=== PATIENT | female | born 1985 | race African-American/Black ===

== ENCOUNTER 2016-03-08 21:15 | Inpatient (IN) | payer OTHER ==
[~2016-03-08] VITALS: Ht 170.2 cm; Wt 59.4 kg
[~2016-03-08 21:15] MED LIST: EPIP0.3I SQ; HYDR-3533 PO; HYDR50TA94 PO
[2016-03-08 21:30] VITALS: BP 108/78; PULSE 89; RESP 18; TEMP 97.7; O2SAT 99
[2016-03-08] MEDS ORDERED: ROBA750T PO (21:35)
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
[2016-03-08 22:22] LABS: AUTOMATED NEUTROPHIL # 2.6 TH/MM3 (1.8-7.7); BASOPHIL # 0.1 TH/MM3 (0-0.2); BASOPHIL % 1.3 % (0.0-2.0); EOSINOPHIL # 0.1 TH/MM3 (0-0.4); EOSINOPHIL % 1.2 % (0.0-4.0); HEMATOCRIT 34.8 % (35.0-46.0); HEMO FLAGS DIFF FINAL; LYMPH % 40.8 % (9.0-44.0); LYMPHOCYTE # 2.2 TH/MM3 (1.0-4.8); MEAN CELL VOLUME 82.8 FL (80.0-100.0); MEAN CORPUSCULAR HEMOGLOBIN 27.8 PG (27.0-34.0); MEAN CORPUSCULAR HGB CONC 33.6 % (32.0-36.0); NEUT % 49.7 % (16.0-70.0); PLATELET COUNT 425 TH/MM3 (150-450); RED CELL DISTRIBUTION WIDTH 13.6 % (11.6-17.2); WHITE BLOOD COUNT 5.3 TH/MM3 (4.0-11.0)
[2016-03-08 22:31] LABS: AMPHETAMINE, URINE NEG (NEG); BARBITURATES, URINE NEG (NEG); COCAINE, URINE NEG (NEG)
[2016-03-08 22:40] LABS: ANION GAP 10 MEQ/L (5-15); AST (GOT) 8 U/L (15-37); BICARBONATE 29.5 MEQ/L (21.0-32.0); BLOOD UREA NITROGEN 5 MG/DL (7-18); CHLORIDE 99 MEQ/L (98-107); GLOMERULAR FILTRATION RATE 99 ML/MIN (>89); POTASSIUM 3.2 MEQ/L (3.5-5.1); SODIUM (NA) 138 MEQ/L (136-145)
[2016-03-08 22:43] LABS: ALKALINE PHOSPHATASE 64 U/L (45-117); ALT (GPT) 17 U/L (10-53); TOTAL BILIRUBIN ADULT 0.2 MG/DL (0.2-1.0)
[2016-03-08 22:45] LABS: ACETAMINOPHEN LESS THAN 2.0 MCG/ML (10.0-30.0)
[2016-03-08] MEDS ORDERED: POTASSIUM CHLORIDE 20 MEQ CONTROLLED RELEASE TAB PO ONE (23:00)
[2016-03-09] MEDS ORDERED: ALPRAZolam 0.5 MG TAB PO ONE (01:15)
[2016-03-09] MEDS ORDERED: ALUMINUM/MAGNESIUM/SIMETH 30 ML CUP PO PRN (01:30)
[2016-03-09] MEDS ORDERED: ACETAMINOPHEN 325 MG TAB PO PRN (01:30)
[2016-03-09] MEDS ORDERED: MAGNESIUM HYDROXIDE SUSP 30 ML CUP PO PRN (01:30)
[2016-03-09] MEDS ORDERED: ACETAMINOPHEN/HYDROcodone 325 MG/5 MG TAB PO PRN (01:30)
[2016-03-09] MEDS ORDERED: hydrOXYzine HCL 50 MG TAB PO PRN (01:30)
[2016-03-09 02:45] VITALS: BP 106/73; PULSE 81; RESP 16; TEMP 97.8; O2SAT 100
[2016-03-09 05:34] VITALS: BP 133/80; PULSE 81; RESP 18; TEMP 98; O2SAT 97
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
[2016-03-09] MEDS ORDERED: REME15TA PO (09:46)
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
[2016-05-30] MEDS ORDERED: HYDR-3516 PO (14:18)
[2016-05-30] MEDS ORDERED: PRED20 PO (14:18)
[2016-05-30] MEDS ORDERED: CYCL1TAB29 PO (14:18)
[2016-07-31] MEDS ORDERED: LORA-474 PO (12:07)
[2016-07-31] MEDS ORDERED: SERT-132 PO (12:07)
[2016-07-31] MEDS ORDERED: ZOFR4TAB PO (12:12)
[2016-08-23] MEDS ORDERED: ZOFR4TAB PO (16:08)
[2016-08-23] MEDS ORDERED: LORA-474 PO (16:09)
== END 2016-03-09 10:20 | disposition home or self-care (01) | DRG 881 ==
LOC: NEPA 21:15 → NEDA 03-09 01:18 → H270 03-09 02:00
PROVIDERS: ADMIT Psychiatry & Neurology Psychiatry; ATTEND Psychiatry & Neurology Psychiatry
DX: F43.21 Adjustment disorder with depressed mood (principal); I10 Essential (primary) hypertension; F12.10 Cannabis abuse, uncomplicated; M79.7 Fibromyalgia; G43.909 Migraine, unspecified, not intractable, without status migrainosus; R20.0 Anesthesia of skin; M54.9 Dorsalgia, unspecified; K44.9 Diaphragmatic hernia without obstruction or gangrene; K21.9 Gastro-esophageal reflux disease without esophagitis; F17.210 Nicotine dependence, cigarettes, uncomplicated; Z59.0 Homelessness; Z87.442 Personal history of urinary calculi
CPT/HCPCS: 80053; 80307; 80320; 80329; 84703; 85025; 99285; G0480

== ENCOUNTER 2016-06-21 09:52 | Emergency (ER) | payer MEDICAID, OTHER ==
[~2016-06-21] VITALS: Ht 167.6 cm; Wt 60.0 kg
[~2016-06-21 09:52] MED LIST changes: +CYCL1TAB29 PO; +HYDR-3516 PO; +PRED20 PO; +REME15TA PO; +ROBA750T PO
[2016-06-21 09:55] VITALS: BP 168/98; PULSE 81; RESP 17; TEMP 97.9; O2SAT 98
--- NOTE | 2016-06-21 10:08 | PD ---
HPI . left hand pain Chief Complaint: Injury Time Seen by Provider: 10:07 Travel History International Travel<30 days: No Contact w/Intl Traveler<30days: No Traveled to known affect area: No History of Present Illness HPI 30-year-old female with no significant past medical history here with complaints of left hand pain. Patient says that her TV, which is a larger older TV was falling and about to hit her 6-year-old daughter, when she lunged forward and tried to catch it. The TV then fell on her left hand, but she was able to save her daughter. She is here now with left hand pain. The pain is located over the fifth metacarpal. There is some edema to the area. She does have a small abrasion. She rates the pain as 8/10 and it radiates up to the left wrist. She has pain with movement of her left wrist. She denies any head injury or loss of consciousness. She is left handed dominant. She denies any chance of as she had a hysterectomy. PFSH Past Medical History Hx Anticoagulant Therapy: No Anemia: Yes Anxiety: Yes Depression: Yes Cancer: No Cardiovascular Problems: Yes (HTN) Chemotherapy: No Cerebrovascular Accident: No Diabetes: No Diminished Hearing: No Endocrine: No Fibromyalgia: Yes Gastrointestinal Disorders: Yes (IBS) GERD: Yes Genitourinary: Yes (UTERINE FIBROIDS) Headaches: Yes Hepatitis: No Hiatal Hernia: Yes Herniated Disk: Yes Hypertension: Yes Immune Disorder: No Implanted Vascular Access Dvce: No Kidney Stones: Yes Musculoskeletal: Yes (chonic back pain) Neurologic: Yes (numbness down l leg to foot) Psychiatric: Yes Reproductive: No Respiratory: No Immunizations Current: Yes Migraines: Yes Thyroid Disease: No Ulcer: Yes ?: Not LMP: 2013 Menopausal: No : 2 Para: 2 Miscarriage: 0 : 0 Ovarian Cysts: Yes (BILATERAL 5CM ) Tubal Ligation: Yes Past Surgical History Abdominal Surgery: Yes AICD: No Cholecystectomy: Yes Gynecologic Surgery: Yes (lumpectomy left breast,) Hysterectomy: Yes Joint Replacement: No Oral Surgery: Yes (WISDOM TEETH) Pacemaker: No Thoracic Surgery: Yes (lumpectomy on left ) Other Surgery: Yes (hemmorrhoid removal, mesh removal with repair, cyst rectal removal,) Family History Family Hypercholesterolemia: Yes Social History Alcohol Use: No Tobacco Use: Yes (ocassionally) Substance Use: Yes (THC OPIATES BENZOS) Allergies-Medications (Allergen,Severity, Reaction): Coded Allergies: Clindamycin (Verified Allergy, Severe, Hives THROAT SWELLING, 06/21/16) Coconut (Verified Allergy, Severe, Anaphylaxis, 06/21/16) Pear (Verified Allergy, Severe, Anaphylaxis, 06/21/16) Toradol (Verified Allergy, Intermediate, STATES HIVES / GI SX, 06/21/16) Bactrim (Verified Adverse Reaction, Severe, throat swelling, 06/21/16) NYQUIL (Verified Adverse Reaction, Severe, irritability, 06/21/16) Cipro (Verified Adverse Reaction, Intermediate, RASH/hives, 06/21/16) Gabapentin (Verified Adverse Reaction, Intermediate, hives, 06/21/16) Keflex (Verified Adverse Reaction, Intermediate, hives, 06/21/16) Mobic (Verified Adverse Reaction, Intermediate, irritability/hives, ) Nonsteroidal Anti-Inflammatory Agts (Verified Adverse Reaction, Intermediate, 06/21/16) gastric ulcers and abd sx with mesh repair Pseudoephedrine (Verified Adverse Reaction, Intermediate, ITCHING/ RESTLESSNESS, 06/21/16) Tramadol (Verified Adverse Reaction, Intermediate, hives, 06/21/16) Reported Meds & Prescriptions Reported Meds & Active Scripts Active No Active Prescriptions or Reported Medications Review of Systems General / Constitutional: No: Fever Eyes: No: Visual changes HENT: No: Headaches Cardiovascular: No: Chest Pain or Discomfort Respiratory: No: Shortness of Breath Gastrointestinal: No: Abdominal Pain Genitourinary: No: Dysuria Musculoskeletal: Positive: Pain (left hand pain) Skin: No Rash Neurologic: No: Weakness Psychiatric: No: Depression Endocrine: No: Polydipsia Hematologic/Lymphatic: No: Easy Bruising Physical Exam Narrative GENERAL: AAO x 3, no acute distress, Well-nourished, well-developed patient. SKIN: Warm and dry. No visible rashes or bruising. 2 mm Abrasion near the fourth metacarpal away from the area of edema and pain HEAD: Normocephalic and atraumatic. EYES: No scleral icterus. No injection or drainage. ENT: No nasal drainage noted. Mucous membranes pink. Airway patent. NECK: Supple, trachea midline. No JVD. CARDIOVASCULAR: Regular rate and rhythm without murmurs, gallops, or rubs. RESPIRATORY: Breath sounds equal bilaterally. No accessory muscle use. No rhonchi or rales. GASTROINTESTINAL: Abdomen soft, non-tender, nondistended. EXTREMITIES: No cyanosis. Edema over the fifth metacarpal of the left hand. There is point tenderness in this area. There is pain with palpation to the distal ulna. There is also pain elicited with movement. right hand is normal. radial and ulnar pulses normal b/l. BACK: Nontender without obvious deformity. No CVA tenderness. PSYCH: AAO x 3, normal affect. Data Data Last Documented VS Vital Signs Date Time Temp Pulse Resp B/P Pulse Ox O2 Delivery O2 Flow Rate FiO2 06/21/16 09:55 97.9 81 17 168/98 98 Orders Oxycodone-Acetamin 5-325 Mg (Percocet (06/21/16 10:15) Hand, Complete ([id number]) (06/21/16 10:09) Wrist, Complete ([id number]) (06/21/16 10:09) ^ Dale Bandage (06/21/16 11:18) MDM Medical Decision Making Medical Screen Exam Complete: Yes Emergency Medical Condition: Yes Medical Record Reviewed: Yes Differential Diagnosis left hand pain, boxer's fracture, less likely dislocation Narrative Course 30-year-old female with no significant past medical history here with complaints of left hand pain. Patient says that her TV, which is a larger older TV was falling and about to hit her 6-year-old daughter, when she lunged forward and tried to catch it. The TV then fell on her left hand, but she was able to save her daughter. She is here now with left hand pain. The pain is located over the fifth metacarpal. There is some edema to the area. She does have a small abrasion. She rates the pain as 8/10 and it radiates up to the left wrist. She has pain with movement of her left wrist. She denies any head injury or loss of consciousness. SHe is left handed dominant. She denies any chance of as she had a hysterectomy. Patient seen and examined. She appears to have a possible left fifth metacarpal fracture. X-ray was ordered. Since pain is extending to the wrist and there is tenderness over the distal ulna, x-ray was also ordered for the wrist. Percocet given in the ED for pain control as patient has multiple drug allergies. Discussed RICE Prelim xray: 1054: no acute fracture identified. I am waiting no final read by radiologist. Last Impressions Wrist X-Ray 06/21/16 1009 Signed Impressions: Service Date/Time: Tuesday, June 21, 2016 10:39 - CONCLUSION: Unremarkable study. Jovanna Clayton MD Hand X-Ray 06/21/16 1009 Signed Impressions: Service Date/Time: Tuesday, June 21, 2016 10:35 - CONCLUSION: Unremarkable study. Jovanna Clayton MD Discussed normal findings with patient. Dale wrap provided for support. With trauma to the area she likely has contusion and some minor soft tissue injury. Recommend dale wrap and rest for the next 2-3 days as this is her dominant hand. If pain persists past 7-10 days f/u with PCP. She was comfortable prior to leaving. Patient verbalized understanding of instructions, questions were answered, and thanked me for their care. I advised them if their condition worsens, please return to the nearest emergency room for further care. Diagnosis Primary Impression: Left hand pain Additional Impression: Contusion of left hand Qualified Code: S60.222A - Contusion of left hand, initial encounter Departure Forms: Tests/Procedures, Work Release Enter return to work date: Jun 24, 2016 Special Instructions: limit heavy lifting or usage of left hand for next 2- 3 days. Additional Instructions: Rest the affected area as much as possible. Ice this area for 15-20 minutes at a time. You can do this every hour or as much as tolerated. Keep this area compressed (dale bandage) as tolerated. Elevate this area. Use over the counter pain medicines as needed for pain and inflammation. Please return to emergency department if your symptoms return or worsen. Follow up with your primary care provider. Take medications as prescribed. Scripts No Active Prescriptions or Reported Meds Disposition: 01 DISCHARGE HOME Condition: Stable Jennifer Dasilva Jun 21, 2016 10:08
[2016-06-21] MEDS ORDERED: oxyCODONE/ACETAMINOPHEN 5 MG/325 MG TAB PO ONE (10:15)
--- NOTE | 2016-06-21 10:55 | RADRPT ---
EXAM DATE/TIME: 06/21/2016 10:39 [facility] COMPARISON: No previous studies available for comparison. INDICATIONS : A television fell on her left hand/wrist MEDICAL HISTORY : None. SURGICAL HISTORY : None. ENCOUNTER: Initial ACUITY: 1 day PAIN SCORE: 9/10 LOCATION: Left wrist FINDINGS: No definite fractures, or dislocations are identified. No definite lytic or sclerotic lesion is seen . CONCLUSION: Unremarkable study. Jovanna Clayton MD on June 21, 2016 at 10:52 Board Certified Radiologist. This report was verified electronically.
--- NOTE | 2016-06-21 11:14 | RADRPT ---
EXAM DATE/TIME: 06/21/2016 10:35 [facility] COMPARISON: No previous studies available for comparison. INDICATIONS : A television fell on her left hand/wrist MEDICAL HISTORY : None. SURGICAL HISTORY : None. ENCOUNTER: Initial ACUITY: 1 day PAIN SCORE: 9/10 LOCATION: Left hand FINDINGS: No definite fractures, or dislocations are identified. No definite lytic or sclerotic lesion is seen . The joint spaces are well maintained. CONCLUSION: Unremarkable study. Jovanna Clayton MD on June 21, 2016 at 11:11 Board Certified Radiologist. This report was verified electronically.
[2016-07-31] MEDS ORDERED: LORA-474 PO (12:07)
[2016-07-31] MEDS ORDERED: SERT-132 PO (12:07)
[2016-07-31] MEDS ORDERED: ZOFR4TAB PO (12:12)
[2016-08-23] MEDS ORDERED: ZOFR4TAB PO (16:08)
[2016-08-23] MEDS ORDERED: LORA-474 PO (16:09)
== END 2016-06-21 11:30 | disposition home or self-care (01) ==
LOC: NEPK 09:52
DX: S60.222A Contusion of left hand, initial encounter (principal); W20.8XXA Other cause of strike by thrown, projected or falling object, initial encounter
CPT/HCPCS: 73110; 73130; 99283

== ENCOUNTER 2016-08-21 00:16 | Emergency (ER) | payer MEDICAID ==
[~2016-08-21] VITALS: Ht 170.2 cm; Wt 60.0 kg
[~2016-08-21 00:16] MED LIST changes: -CYCL1TAB29 PO; -EPIP0.3I SQ; -HYDR-3516 PO; -HYDR-3533 PO; -HYDR50TA94 PO; +LORA-474 PO; -PRED20 PO; -REME15TA PO; -ROBA750T PO; +SERT-132 PO; +ZOFR4TAB PO
[2016-08-21 00:18] VITALS: BP 137/80; PULSE 85; RESP 16; TEMP 98.5; O2SAT 99
[2016-08-21] MEDS ORDERED: SODIUM CHLOR 0.9% 1000 ML INJ 1,000 ML IV ONE (01:00)
[2016-08-21] MEDS ORDERED: ONDANSETRON HCL 4 MG/2 ML VIAL IV ONE (01:00)
--- NOTE | 2016-08-21 01:11 | PD ---
HPI Chief Complaint: Abdominal Pain Time Seen by Provider: 00:50 Travel History International Travel<30 days: No Contact w/Intl Traveler<30days: No Traveled to known affect area: No History of Present Illness HPI The patient is a 30 year old female who presents to the [facility] emergency department with a history of abdominal pain that began 2 days. It is constant in the midepigastric area and comes in waves on the sides of the abdomen. The patient reports that the pain is an 8/10 in severity. The patient reports having nausea without vomiting. The patient reports that she's had hard stools and had to push to get her stools out, therefore she thought she was constipated she did yesterday drink magnesium citrate and take the Dulcolax. She had 1 small pasty bowel movement today. She has had congestion for the last 2 weeks. She has a light light yellow nasal discharge with associated sinus pressure over her forehead and cheeks. The patient reports that she does have a history of a hiatal hernia and has been having worsening acid reflux. She took Zantac yesterday without any relief. The patient denies any recent known fevers, cough, chest congestion, neck pain, chest pain, shortness of breath, urinary symptoms, or neurologic symptoms. FORMERLY [facility], [facility] Past Medical History Narrative Medical The patient's past medical history is significant for hypertension, chronic back pain, anxiety and depression, chronic headaches, bowel obstruction, acid reflux, bowel obstruction Hx Anticoagulant Therapy: No Anemia: Yes Anxiety: Yes Depression: Yes Cancer: No Cardiovascular Problems: Yes (HTN) Chemotherapy: No Cerebrovascular Accident: No Diabetes: No Diminished Hearing: No Endocrine: No Fibromyalgia: Yes Gastrointestinal Disorders: Yes (IBS) GERD: Yes Genitourinary: Yes (UTERINE FIBROIDS) Headaches: Yes Hepatitis: No Hiatal Hernia: Yes Herniated Disk: Yes Hypertension: Yes Immune Disorder: No Implanted Vascular Access Dvce: No Kidney Stones: Yes Musculoskeletal: Yes (chonic back pain) Neurologic: Yes (numbness down l leg to foot) Psychiatric: Yes Reproductive: No Respiratory: No Immunizations Current: Yes Migraines: Yes Thyroid Disease: No Ulcer: Yes Tetanus Vaccination: < 5 Years Influenza Vaccination: Yes ?: Not Menopausal: No : 2 Para: 2 Miscarriage: 0 : 0 Ovarian Cysts: Yes (BILATERAL 5CM ) Tubal Ligation: Yes Past Surgical History Narrative Surgical The patient's past surgical history is significant for lumpectomy on left breast benign, hysterectomy, abdominal hernia repair with mesh x3, cholecystectomy, BTL, uterine ablation Abdominal Surgery: Yes AICD: No Cholecystectomy: Yes Gynecologic Surgery: Yes (lumpectomy left breast, UTERINE ABALATION) Hysterectomy: Yes Joint Replacement: No Oral Surgery: Yes (WISDOM TEETH) Pacemaker: No Thoracic Surgery: Yes (lumpectomy on left ) Other Surgery: Yes (hemmorrhoid removal, mesh removal with repair, cyst rectal removal,) Family History Family Hypercholesterolemia: Yes Social History Alcohol Use: Yes (OCCASSIONALLY) Tobacco Use: Yes (ocassionally) Substance Use: No (PT DENIES, HX) Allergies-Medications (Allergen,Severity, Reaction): Coded Allergies: Clindamycin (Verified Allergy, Severe, Hives THROAT SWELLING, 08/21/16) Coconut (Verified Allergy, Severe, Anaphylaxis, 08/21/16) Pear (Verified Allergy, Severe, Anaphylaxis, 08/21/16) Toradol (Verified Allergy, Intermediate, STATES HIVES / GI SX, 08/21/16) Bactrim (Verified Adverse Reaction, Severe, throat swelling, 08/21/16) NYQUIL (Verified Adverse Reaction, Severe, irritability, 08/21/16) Cipro (Verified Adverse Reaction, Intermediate, RASH/hives, 08/21/16) Gabapentin (Verified Adverse Reaction, Intermediate, hives, 08/21/16) Keflex (Verified Adverse Reaction, Intermediate, hives, 08/21/16) Mobic (Verified Adverse Reaction, Intermediate, irritability/hives, ) Nonsteroidal Anti-Inflammatory Agts (Verified Adverse Reaction, Intermediate, 08/21/16) gastric ulcers and abd sx with mesh repair Pseudoephedrine (Verified Adverse Reaction, Intermediate, ITCHING/ RESTLESSNESS, 08/21/16) Tramadol (Verified Adverse Reaction, Intermediate, hives, 08/21/16) Reported Meds & Prescriptions Reported Meds & Active Scripts Active Zofran Odt (Ondansetron Odt) 4 Mg Tab 4 Mg SL Q6HR PRN Augmentin (Amoxicillin-Clavulanate) 875-125 Mg Tab 1 Tab PO BID Zofran (Ondansetron HCl) 4 Mg Tab 4 Mg PO Q8HR PRN Ativan (Lorazepam) 1 Mg Tab 1 Mg PO Q8H PRN Sertraline (Sertraline HCl) 50 Mg Tab 50 Mg PO DAILY Review of Systems Except as stated in HPI: all other systems reviewed are Neg General / Constitutional: No: Fever Eyes: No: Visual changes HENT: Positive: Headaches, Rhinorrhea (yellow color), Congestion, No: Neck Stiffness, Neck Pain Cardiovascular: No: Chest Pain or Discomfort Respiratory: No: Shortness of Breath Gastrointestinal: Positive: Nausea, Abdominal Pain, Indigestion, No: Vomiting , Diarrhea Genitourinary: No: Dysuria Musculoskeletal: No: Pain Skin: No Rash Neurologic: No: Weakness, Focal Abnormalities, Change in Mentation, Slurred Speech, Sensory Disturbance Psychiatric: No: Depression Endocrine: No: Polydipsia Hematologic/Lymphatic: No: Easy Bruising Physical Exam Narrative General: The patient is a well-developed well-nourished female in no acute distress. Head and Neck exam: Head is normocephalic atraumatic. Eyes: EOMI, pupils are equal round and reactive to light. Nose: Midline septum with pink mucous membranes Mouth: Dentition unremarkable. Moist mucus membranes. Posterior oropharynx is not erythematous. No tonsillar hypertrophy. Uvula midline. Airway patent. Neck: No palpable lymphadenopathy. No nuchal rigidity. No thyromegaly. Cardiovascular: Regular rate and rhythm without murmurs, gallops, or rubs. Lungs: Clear to auscultation bilaterally. No wheezes, rhonchi, or rales. Abdomen: Soft, with tenderness on palpation in the midepigastric area and just above the umbilicus. No tenderness on palpation in the other quadrants of the abdomen, specifically along the left and right lower quadrant. No guarding, rebound, or rigidity. Negative Kountze sign. Normal bowel sounds are audible. Extremities: No clubbing, cyanosis, or edema. 2+ pulses in all 4 extremities. No calf tenderness on palpation. Back: No spinous process tenderness to palpation. No costovertebral angle tenderness to palpation. Neurologic Exam: Grossly nonfocal. Skin Exam: No rash noted. Intact skin that is warm and dry. Data Data Last Documented VS Vital Signs Date Time Temp Pulse Resp B/P Pulse Ox O2 Delivery O2 Flow Rate FiO2 08/21/16 02:05 77 18 144/60 100 Room Air 08/21/16 00:18 98.5 Orders Complete Blood Count With Diff (08/21/16 00:53) Comprehensive Metabolic Panel (08/21/16 00:53) C-Reactive Protein (Crp) (08/21/16 00:53) Lipase (08/21/16 00:53) Urinalysis - C+S If Indicated (08/21/16 00:53) Magnesium (Mg) (08/21/16 00:53) Iv Access Insert/Monitor (08/21/16 00:53) Ecg Monitoring (08/21/16 00:53) Oximetry (08/21/16 00:53) Ed Urine Pregnancytest Poc (08/21/16 00:53) Lactic Acid (08/21/16 00:53) Sodium Chlor 0.9% 1000 Ml Inj (Ns 1000 M (08/21/16 01:00) Ondansetron Inj (Zofran Inj) (08/21/16 01:00) Ct Abd/Pel W Iv Contrast(Rout) (08/21/16 01:47) Morphine Inj (Morphine Inj) (08/21/16 02:00) Pantoprazole Inj (Protonix Inj) (08/21/16 02:00) Iohexol 350 Inj (Omnipaque 350 Inj) (08/21/16 02:45) Amoxicil-Clavulanate (Augmentin) (08/21/16 03:15) Labs Laboratory Tests Test 08/21/16 08/21/16 01:17 01:21 Urine Color YELLOW Urine Turbidity HAZY Urine pH 7.0 Urine Specific [place] 1.018 Urine Protein NEG mg/dL Urine Glucose (UA) NEG mg/dL Urine Ketones NEG mg/dL Urine Occult Blood NEG Urine Nitrite NEG Urine Bilirubin NEG Urine Urobilinogen LESS THAN 2.0 MG/DL Urine Leukocyte Esterase SMALL Urine RBC 2 /hpf Urine WBC 4 /hpf Urine Squamous Epithelial 4 /hpf Cells Urine Bacteria RARE /hpf Urine Mucus FEW /lpf Microscopic Urinalysis Comment CULT NOT INDICATED White Blood Count 5.6 TH/MM3 Red Blood Count 3.96 MIL/MM3 Hemoglobin 11.3 GM/DL Hematocrit 33.8 % Mean Corpuscular Volume 85.2 FL Mean Corpuscular Hemoglobin 28.4 PG Mean Corpuscular Hemoglobin 33.3 % Concent Red Cell Distribution Width 14.6 % Platelet Count 241 TH/MM3 Mean Platelet Volume 7.8 FL Neutrophils (%) (Auto) 52.6 % Lymphocytes (%) (Auto) 37.2 % Monocytes (%) (Auto) 7.6 % Eosinophils (%) (Auto) 2.2 % Basophils (%) (Auto) 0.4 % Neutrophils # (Auto) 2.9 TH/MM3 Lymphocytes # (Auto) 2.1 TH/MM3 Monocytes # (Auto) 0.4 TH/MM3 Eosinophils # (Auto) 0.1 TH/MM3 Basophils # (Auto) 0.0 TH/MM3 CBC Comment DIFF FINAL Differential Comment Sodium Level 142 MEQ/L Potassium Level 3.5 MEQ/L Chloride Level 106 MEQ/L Carbon Dioxide Level 29.2 MEQ/L Anion Gap 7 MEQ/L Blood Urea Nitrogen 8 MG/DL Creatinine 0.65 MG/DL Estimat Glomerular Filtration 131 ML/MIN Rate Random Glucose 87 MG/DL Lactic Acid Level 1.2 mmol/L Calcium Level 8.7 MG/DL Magnesium Level 1.9 MG/DL Total Bilirubin LESS THAN 0.1 MG/DL Aspartate Amino Transf 20 U/L (AST/SGOT) Alanine Aminotransferase 23 U/L (ALT/SGPT) Alkaline Phosphatase 49 U/L C-Reactive Protein LESS THAN 0.29 MG/DL Total Protein 6.8 GM/DL Albumin 3.5 GM/DL Lipase 235 U/L [facility] Medical Decision Making Medical Screen Exam Complete: Yes Emergency Medical Condition: Yes Medical Record Reviewed: Yes Interpretation(s) Last Impressions Abdomen/Pelvis CT 08/21/16 0147 Signed Impressions: Service Date/Time: Sunday, August 21, 2016 02:39 - CONCLUSION: Mild colitis suspected in the proper clinical setting, mainly the transverse colon. The rest of the CT of the abdomen and pelvis is within normal limits. Previous cholecystectomy. Floyd Ramirez MD Differential Diagnosis Bowel obstruction, versus constipation, versus colitis, versus diverticulitis, versus peptic ulcer disease, versus acid reflux, versus pancreatitis Narrative Course During the course of the patients emergency department visit, the patients history, examination, and differential diagnosis were reviewed with the patient. The patient had IV access obtained and blood work sent for analysis. The patient was placed on a color television console monitor with oximetry and blood pressure monitoring. The patient was initially provided normal saline 1 L IV fluid bolus, morphine 4 mg IV, Zofran 4 mg IV. The patients laboratory studies were reviewed and remarkable for a white count of 5.6, hemoglobin 11.3, platelets 241 with a normal differential. CMP is unremarkable, C-reactive protein less than 0.29, lipase 235, lactic acid 1.2, urinalysis shows small leukocyte esterase rare bacteria otherwise unremarkable, culture not indicated. Radiology studies were reviewed and remarkable for a CT scan of the abdomen and pelvis that shows a mild colitis of the transverse colon, no other acute abnormality. Given the patient's allergy history, I was limited as to the choice of antibiotic coverage for colitis, Augmentin was administered 875 mg by mouth 1 in the emergency department. She will be continued on this for the next 10 days. She was instructed regarding the importance of close follow-up with her primary care physician and referred to a machine inker that she continues to have problems. The patient is resting comfortably and feels better, is alert and in no distress. The patients results and examination findings were discussed with the patient. The repeat examination is unremarkable and benign. The history, exam, diagnostic testing, and current condition do not suggest any significant pathology to warrant further testing, continued ED treatment, admission, or surgical evaluation at this point. The vital signs have been stable. The patient does not have uncontrollable pain, intractable vomiting, or other significant symptoms. The patient's condition is stable and appropriate for discharge. The patient will pursue further outpatient evaluation with a primary care physician or other designated or consulting physician as indicated in the discharge instructions. The patient expressed understanding and was agreeable with this plan. Diagnosis Primary Impression: Colitis Additional Impression: Acute bacterial sinusitis Referrals: Primary Care Physician 2 days Patient Instructions: General Instructions, Infectious Colitis (ED), Sinusitis (ED) Med/Other Pt SpecificInfo: Prescription(s) given Scripts Ondansetron Odt (Zofran Odt)4 Mg Tab4 Mg SL Q6HR PRN (Nausea/Vomiting) #7 TAB Ref 0 Prov:Sindhu Sanabria MD 08/21/16 Amoxicillin-Clavulanate (Augmentin)875-125 Mg Tab1 Tab PO BID #19 TAB Ref 0 Prov:Sindhu Sanabria MD 08/21/16 Disposition: 01 DISCHARGE HOME Condition: Stable Sindhu Sanabria MD Aug 21, 2016 01:11
[2016-08-21 01:29] VITALS: RESP 18; O2SAT 100
[2016-08-21 01:34] LABS: AUTOMATED NEUTROPHIL # 2.9 TH/MM3 (1.8-7.7); BASOPHIL % 0.4 % (0.0-2.0); EOSINOPHIL # 0.1 TH/MM3 (0-0.4); EOSINOPHIL % 2.2 % (0.0-4.0); HEMATOCRIT 33.8 % (35.0-46.0); HEMO FLAGS DIFF FINAL; LYMPH % 37.2 % (9.0-44.0); LYMPHOCYTE # 2.1 TH/MM3 (1.0-4.8); MEAN CELL VOLUME 85.2 FL (80.0-100.0); MEAN CORPUSCULAR HEMOGLOBIN 28.4 PG (27.0-34.0); MEAN CORPUSCULAR HGB CONC 33.3 % (32.0-36.0); MONO % 7.6 % (0.0-8.0); NEUT % 52.6 % (16.0-70.0); PLATELET COUNT 241 TH/MM3 (150-450); RED BLOOD COUNT 3.96 MIL/MM3 (4.00-5.30); RED CELL DISTRIBUTION WIDTH 14.6 % (11.6-17.2); WHITE BLOOD COUNT 5.6 TH/MM3 (4.0-11.0)
[2016-08-21 01:59] LABS: BACTERIA, URINE RARE /hpf; BLOOD, URINE NEG (NEG); COMMENT (UR) CULT NOT INDICATED; CULTURE IF INDICATED CULT NOT INDICATED; GLUCOSE,URINE NEG (NEG); KETONE, URINE NEG (NEG); MUCUS URINE FEW /lpf (OCC); NITRITE,URINE NEG (NEG); SQUAMOUS EPITHELIAL CELL URINE 4 /hpf (0-5); URINE COLOR YELLOW (YELLW/STRAW)
[2016-08-21] MEDS ORDERED: MORPHINE SULFATE 4 MG/ML INJ IV PUSH ONE (02:00)
[2016-08-21] MEDS ORDERED: PANTOPRAZOLE SODIUM 40 MG VIAL IV PUSH ONE (02:00)
[2016-08-21 02:02] LABS: ALT (GPT) 23 U/L (10-53); ANION GAP 7 MEQ/L (5-15); AST (GOT) 20 U/L (15-37); BICARBONATE 29.2 MEQ/L (21.0-32.0); BLOOD UREA NITROGEN 8 MG/DL (7-18); CHLORIDE 106 MEQ/L (98-107); GLOMERULAR FILTRATION RATE 131 ML/MIN (>89); MAGNESIUM 1.9 MG/DL (1.5-2.5); POTASSIUM 3.5 MEQ/L (3.5-5.1); SODIUM (NA) 142 MEQ/L (136-145)
[2016-08-21 02:04] LABS: ALKALINE PHOSPHATASE 49 U/L (45-117); TOTAL BILIRUBIN ADULT LESS THAN 0.1 MG/DL (0.2-1.0)
[2016-08-21 02:05] VITALS: BP 144/60; PULSE 77; RESP 18; O2SAT 100
[2016-08-21] MEDS ORDERED: IOHEXOL 350 MG/ML 10 ML VIAL (for RAD DIAG) IV ONE (02:45)
--- NOTE | 2016-08-21 02:57 | RADRPT ---
EXAM DATE/TIME: 08/21/2016 02:39 [place] COMPARISON: CT ABDOMEN & PELVIS W CONTRAST, June 15, 2014, 18:40. INDICATIONS : Abdomen pain with nausea. IV CONTRAST: 94 cc Omnipaque 350 (iohexol) IV ORAL CONTRAST: No oral contrast ingested. RADIATION DOSE: 6.46 CTDIvol (mGy) MEDICAL HISTORY : Hypertension. Renal calculi. Gastroesophageal reflux disease.Renal stones SURGICAL HISTORY : Cholecystectomy. Hysterectomy.Umbilical hernia repair. ENCOUNTER: Initial ACUITY: 1 day PAIN SCALE: 7/10 LOCATION: Bilateral abdomen TECHNIQUE: Volumetric scanning of the abdomen and pelvis was performed. Using automated exposure control and ad justment of the mA and/or kV according to patient size, radiation dose was kept as low as reasonably achievable to obtain optimal diagnostic quality images. FINDINGS: LOWER LUNGS: The visualized lower lungs are clear. LIVER: Homogeneous density without lesion. There is no dilation of the biliary tree. Previous cholecystecto my. SPLEEN: Normal size without lesion. PANCREAS: Within normal limits. KIDNEYS: Normal in size and shape. There is no mass, stone or hydronephrosis. ADRENAL GLANDS: Within normal limits. VASCULAR: There is no aortic aneurysm. BOWEL/MESENTERY: There is apparent mild colonic wall thickening, especially the transverse colon. The CT appearance of the small bowel within normal limits. Appendix within normal limits. ABDOMINAL WALL: Within normal limits. RETROPERITONEUM: There is no lymphadenopathy. BLADDER: No wall thickening or mass. REPRODUCTIVE: Within normal limits. INGUINAL: There is no lymphadenopathy or hernia. MUSCULOSKELETAL: Within normal limits for patient age. CONCLUSION: Mild colitis suspected in the proper clinical setting, mainly the transverse colon. The rest of the C T of the abdomen and pelvis is within normal limits. Previous cholecystectomy. Floyd Ramirez MD on August 21, 2016 at 2:51 Board Certified Radiologist. This report was verified electronically.
[2016-08-21] MEDS ORDERED: ZOFR4TAB3 SL (03:13)
[2016-08-21] MEDS ORDERED: AUGM875T3 PO (03:13)
[2016-08-21] MEDS ORDERED: AMOXICILLIN/CLAVULANATE K 875 MG TAB PO ONE (03:15)
[2016-08-23] MEDS ORDERED: ZOFR4TAB PO (16:08)
[2016-08-23] MEDS ORDERED: LORA-474 PO (16:09)
[2016-09-05] MEDS ORDERED: AMOX500C PO (14:46)
[2016-09-05] MEDS ORDERED: NORC5TAB PO (14:52)
== END 2016-08-21 04:11 | disposition home or self-care (01) ==
LOC: NEPE 00:16
DX: K52.9 Noninfective gastroenteritis and colitis, unspecified (principal); J01.90 Acute sinusitis, unspecified; B96.89 Other specified bacterial agents as the cause of diseases classified elsewhere; D64.9 Anemia, unspecified; I10 Essential (primary) hypertension; K58.9 Irritable bowel syndrome, unspecified; K21.9 Gastro-esophageal reflux disease without esophagitis; F41.9 Anxiety disorder, unspecified; Z79.899 Other long term (current) drug therapy
CPT/HCPCS: 74177; 80053; 81001; 83605; 83690; 83735; 84703; 85025; 86140; 96361; 96374; 96375; 99285; C9113; J2270; J2405; J7030; Q9967

== ENCOUNTER 2016-08-25 12:17 | Emergency (ER) | payer MEDICAID ==
[~2016-08-25 12:17] MED LIST changes: +AUGM875T3 PO; +ZOFR4TAB3 SL
[2016-08-25 12:20] VITALS: BP 140/84; PULSE 84; RESP 15; TEMP 98.2; O2SAT 99
[2016-08-25] MEDS ORDERED: LIDOCAINE HCL 1% 50 ML VIAL INFIL ONE (13:00)
--- NOTE | 2016-08-25 13:00 | PD ---
HPI . Right forearm laceration Chief Complaint: Laceration/Skin Injury Time Seen by Provider: 12:59 Travel History International Travel<30 days: No Contact w/Intl Traveler<30days: No Traveled to known affect area: No History of Present Illness HPI 30-year-old female with no significant past medical history with a significant amount of drug allergies here with complaints of right forearm laceration that she sustained less than hour ago while trying to clean a fish. Patient tells me that she was fishing and caught a fish and decided to clean it on top of her right forearm because there was no counter space and accidentally delayed through the fish into her arm. She sustained a 6 cm superficial laceration. She is uncertain of her last tetanus. She complains of pain in the laceration site and has no other issues. PFSH Past Medical History Hx Anticoagulant Therapy: No Anemia: Yes Anxiety: Yes Depression: Yes Cancer: No Cardiovascular Problems: Yes (HTN) Chemotherapy: No Cerebrovascular Accident: No Diabetes: No Diminished Hearing: No Endocrine: No Fibromyalgia: Yes Gastrointestinal Disorders: Yes (IBS) GERD: Yes Genitourinary: Yes (UTERINE FIBROIDS) Headaches: Yes Hepatitis: No Hiatal Hernia: Yes Herniated Disk: Yes Hypertension: Yes Immune Disorder: No Implanted Vascular Access Dvce: No Kidney Stones: Yes Musculoskeletal: Yes (chonic back pain) Neurologic: Yes (numbness down l leg to foot) Psychiatric: Yes Reproductive: No Respiratory: No Immunizations Current: Yes Migraines: Yes Thyroid Disease: No Ulcer: Yes Menopausal: No : 2 Para: 2 Miscarriage: 0 : 0 Ovarian Cysts: Yes (BILATERAL 5CM ) Tubal Ligation: Yes Past Surgical History Abdominal Surgery: Yes AICD: No Cholecystectomy: Yes Gynecologic Surgery: Yes (lumpectomy left breast, UTERINE ABALATION) Hysterectomy: Yes Joint Replacement: No Oral Surgery: Yes (WISDOM TEETH) Pacemaker: No Thoracic Surgery: Yes (lumpectomy on left ) Other Surgery: Yes (hemmorrhoid removal, mesh removal with repair, cyst rectal removal,) Family History Family Hypercholesterolemia: Yes Social History Alcohol Use: Yes (OCCASSIONALLY) Tobacco Use: Yes (ocassionally) Substance Use: No (PT DENIES, HX) Allergies-Medications (Allergen,Severity, Reaction): Coded Allergies: Clindamycin (Verified Allergy, Severe, Hives THROAT SWELLING, 08/25/16) Coconut (Verified Allergy, Severe, Anaphylaxis, 08/25/16) Pear (Verified Allergy, Severe, Anaphylaxis, 08/25/16) Toradol (Verified Allergy, Intermediate, STATES HIVES / GI SX, 08/25/16) Bactrim (Verified Adverse Reaction, Severe, throat swelling, 08/25/16) NYQUIL (Verified Adverse Reaction, Severe, irritability, 08/25/16) Cipro (Verified Adverse Reaction, Intermediate, RASH/hives, 08/25/16) Gabapentin (Verified Adverse Reaction, Intermediate, hives, 08/25/16) Keflex (Verified Adverse Reaction, Intermediate, hives, 08/25/16) Mobic (Verified Adverse Reaction, Intermediate, irritability/hives, ) Nonsteroidal Anti-Inflammatory Agts (Verified Adverse Reaction, Intermediate, 08/25/16) gastric ulcers and abd sx with mesh repair Pseudoephedrine (Verified Adverse Reaction, Intermediate, ITCHING/ RESTLESSNESS, 08/25/16) Tramadol (Verified Adverse Reaction, Intermediate, hives, 08/25/16) Reported Meds & Prescriptions Reported Meds & Active Scripts Active Doxycycline Hyclate 100 Mg Cap 100 Mg PO BID Ativan (Lorazepam) 1 Mg Tab 1 Mg PO Q8H PRN Zofran (Ondansetron HCl) 4 Mg Tab 4 Mg PO Q8HR PRN Zofran Odt (Ondansetron Odt) 4 Mg Tab 4 Mg SL Q6HR PRN Augmentin (Amoxicillin-Clavulanate) 875-125 Mg Tab 1 Tab PO BID Sertraline (Sertraline HCl) 50 Mg Tab 50 Mg PO DAILY Review of Systems General / Constitutional: No: Fever Eyes: No: Visual changes HENT: No: Headaches Cardiovascular: No: Chest Pain or Discomfort Respiratory: No: Shortness of Breath Gastrointestinal: No: Abdominal Pain Genitourinary: No: Dysuria Musculoskeletal: No: Pain Skin: Positive Other (laceration ), No Rash Neurologic: No: Weakness Psychiatric: No: Depression Endocrine: No: Polydipsia Hematologic/Lymphatic: No: Easy Bruising Physical Exam Narrative GENERAL: AAO x 3, no acute distress, Well-nourished, well-developed patient. SKIN: Warm and dry. No visible rashes or bruising. 6 cm superficial laceration to the right ventral aspect of the forearm. The laceration is very superficial and there is no visible deep tissue, vessel or nerve injury. HEAD: Normocephalic and atraumatic. EYES: No scleral icterus. No injection or drainage. EOM intact, PERRLA ENT: No nasal drainage noted. Mucous membranes pink. Airway patent. NECK: Supple, trachea midline. No JVD. CARDIOVASCULAR: Regular rate and rhythm without murmurs, gallops, or rubs. RESPIRATORY: Breath sounds equal bilaterally. No accessory muscle use. No rhonchi or rales. GASTROINTESTINAL: Visual inspection normal EXTREMITIES: No cyanosis or edema. All digits of the right and left hand move freely without any abnormalities. BACK: Nontender without obvious deformity. No CVA tenderness. 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 Data Data Last Documented VS Vital Signs Date Time Temp Pulse Resp B/P Pulse Ox O2 Delivery O2 Flow Rate FiO2 08/25/16 12:20 98.2 84 15 140/84 99 Orders Lidocaine 1% Inj (50 Ml) (Xylocaine 1% I (08/25/16 13:00) Tetanus/Diphtheria Tox Adult (Tetanus/Di (08/25/16 13:15) MDM Medical Decision Making Medical Screen Exam Complete: Yes Emergency Medical Condition: Yes Medical Record Reviewed: Yes Differential Diagnosis Skin abrasion, forearm laceration, less likely arterial bleed Narrative Course 30-year-old female here with a very superficial 6 cm laceration to the right forearm. Patient gave verbal consent to repair. Tetanus ordered. 12 sutures were placed to close this laceration. Patient tolerated without incident. I advised her to have the sutures removed in 7-10 days. We discussed the signs of infection and she was notified when to return to the emergency department. Patient has a long list of allergies and we have decided on using doxycycline for coverage of possible infection. Patient verbalized understanding of instructions, questions were answered, and thanked me for their care. I advised them if their condition worsens, please return to the nearest emergency room for further care. Procedures Procedure Narrative LACERATION LOCATION: Right forearm ventral LENGTH: 6 cm NUMBER OF STITCHES/HUSSEIN: 12 REPAIR: The area of the laceration was prepped with Betadine and sterilely draped. The laceration was infiltrated with 1% lidocaine. The wound was copiously irrigated and explored without evidence of foreign body, tendon injury or neurovascular injury. The wound was closed using 4-0 Ethilon. This was a single layer repair. A sterile dressing was applied. The patient was advised to keep the dressing clean and dry. Patient tolerated the procedure well. Diagnosis Primary Impression: Forearm laceration Qualified Code: S51.811A - Forearm laceration, right, initial encounter Patient Instructions: General Instructions Additional Instructions: Keep area clean and dry. Use gauze as we discussed and change 1-2 times a day. Watch for signs of infection: fever, redness, swelling, warmth, pus or drainage , red streaks around the cut, and increased pain from the area. If you received a tetanus shot, you may experience tenderness at the injection site. This is normal. Please return to emergency department if your symptoms return or worsen. Follow up with your primary care provider. Take medications as prescribed. You will need these sutures removed in 7-10 days. Med/Other Pt SpecificInfo: Prescription(s) given Scripts Doxycycline Hyclate 100 Mg [id number] Mg PO BID #20 CAP Ref 0 Prov:Cliff Taylor MD 08/25/16 Disposition: 01 DISCHARGE HOME Condition: Stable Jennifer Dasilva Aug 25, 2016 12:59
[2016-08-25] MEDS ORDERED: TETANUS/DIPHTHERIA TOXOID ADULT 0.5 ML VIAL IM ONE (13:15)
[2016-08-25] MEDS ORDERED: DOXY100C PO (13:32)
[2016-09-05] MEDS ORDERED: AMOX500C PO (14:46)
[2016-09-05] MEDS ORDERED: NORC5TAB PO (14:52)
== END 2016-08-25 13:55 | disposition home or self-care (01) ==
LOC: NEPC 12:17
DX: S51.811A Laceration without foreign body of right forearm, initial encounter (principal); W45.8XXA Other foreign body or object entering through skin, initial encounter; Y93.89 Activity, other specified
CPT/HCPCS: 12002

== ENCOUNTER 2016-11-22 20:06 | Emergency (ER) | payer MEDICAID ==
[~2016-11-22] VITALS: Ht 170.2 cm; Wt 62.0 kg
[~2016-11-22 20:06] MED LIST changes: +AMOX500C PO; +DOXY100C PO; +NORC5TAB PO
[2016-11-22 20:08] VITALS: BP 154/94; PULSE 98; RESP 16; TEMP 98.9; O2SAT 100
[2016-11-22] MEDS ORDERED: PENI500T PO (20:37)
[2016-11-22] MEDS ORDERED: PERI0.126 SWISH-SPIT (20:37)
--- NOTE | 2016-11-22 20:37 | PD ---
HPI Chief Complaint: Oral / Dental Pain or Problem Time Seen by Provider: 20:25 Travel History International Travel<30 days: No Contact w/Intl Traveler<30days: No Traveled to known affect area: No History of Present Illness HPI 31 year-old female presents to the emergency department for evaluation of right mandibular dental pain radiating to her ear and neck. Patient states that she has had a chipped tooth for an extended amount of time and has been unable to get it fixed due to insurance. She does have follow-up appointment within the next week, however she states the pain is unbearable. Denies any new trauma. No fever or chills. She has no other symptoms to report at this time. PFSH Past Medical History Hx Anticoagulant Therapy: No Anemia: Yes Anxiety: Yes Depression: Yes Cancer: No Cardiovascular Problems: Yes (HTN) Chemotherapy: No Cerebrovascular Accident: No Diabetes: No Diminished Hearing: No Endocrine: No Fibromyalgia: Yes Gastrointestinal Disorders: Yes (IBS) GERD: Yes Genitourinary: Yes (UTERINE FIBROIDS) Headaches: Yes Hepatitis: No Hiatal Hernia: Yes Herniated Disk: Yes Hypertension: Yes Immune Disorder: No Implanted Vascular Access Dvce: No Kidney Stones: Yes Musculoskeletal: Yes (chonic back pain) Neurologic: Yes (numbness down l leg to foot) Psychiatric: Yes Reproductive: No Respiratory: No Immunizations Current: Yes Migraines: Yes Thyroid Disease: No Ulcer: Yes ?: Not Menopausal: No : 2 Para: 2 Miscarriage: 0 : 0 Ovarian Cysts: Yes (BILATERAL 5CM ) Tubal Ligation: Yes Past Surgical History Abdominal Surgery: Yes AICD: No Cholecystectomy: Yes Gynecologic Surgery: Yes (lumpectomy left breast, UTERINE ABALATION) Hysterectomy: Yes Joint Replacement: No Oral Surgery: Yes (WISDOM TEETH) Pacemaker: No Thoracic Surgery: Yes (lumpectomy on left ) Other Surgery: Yes (hemmorrhoid removal, mesh removal with repair, cyst rectal removal,) Family History Family Hypercholesterolemia: Yes Social History Alcohol Use: Yes (OCCASSIONALLY) Tobacco Use: Yes (ocassionally) Substance Use: No (PT DENIES, HX) Allergies-Medications (Allergen,Severity, Reaction): Coded Allergies: clindamycin (Unverified Allergy, Severe, Hives THROAT SWELLING, 10/16/16) coconut (Unverified Allergy, Severe, Anaphylaxis, 10/16/16) pear (Unverified Allergy, Severe, Anaphylaxis, 10/16/16) ketorolac (Unverified Allergy, Intermediate, STATES HIVES / GI SX, 10/16/16 ) gastric ulcers and abd sx with mesh repair acetaminophen (Unverified Adverse Reaction, Severe, irritability, 10/16/16) dextromethorphan (Unverified Adverse Reaction, Severe, irritability, ) doxylamine (Unverified Adverse Reaction, Severe, irritability, 10/16/16) sulfamethoxazole (Unverified Adverse Reaction, Severe, throat swelling, ) trimethoprim (Unverified Adverse Reaction, Severe, throat swelling, ) cephalexin (Unverified Adverse Reaction, Intermediate, hives, 10/16/16) ciprofloxacin (Unverified Adverse Reaction, Intermediate, RASH/hives, 10/16) diclofenac (Unverified Adverse Reaction, Intermediate, 10/16/16) gastric ulcers and abd sx with mesh repair etodolac (Unverified Adverse Reaction, Intermediate, 10/16/16) gastric ulcers and abd sx with mesh repair flurbiprofen (Unverified Adverse Reaction, Intermediate, 10/16/16) gastric ulcers and abd sx with mesh repair gabapentin (Unverified Adverse Reaction, Intermediate, hives, 10/16/16) ibuprofen (Unverified Adverse Reaction, Intermediate, 10/16/16) gastric ulcers and abd sx with mesh repair indomethacin (Unverified Adverse Reaction, Intermediate, 10/16/16) gastric ulcers and abd sx with mesh repair ketoprofen (Unverified Adverse Reaction, Intermediate, 10/16/16) gastric ulcers and abd sx with mesh repair meloxicam (Unverified Adverse Reaction, Intermediate, irritability/hives, 10/16/16) naproxen (Unverified Adverse Reaction, Intermediate, 10/16/16) gastric ulcers and abd sx with mesh repair oxaprozin (Unverified Adverse Reaction, Intermediate, 10/16/16) gastric ulcers and abd sx with mesh repair pseudoephedrine (Unverified Adverse Reaction, Intermediate, ITCHING/ RESTLESSNESS, 10/16/16) tramadol (Unverified Adverse Reaction, Intermediate, hives, 10/16/16) Reported Meds & Prescriptions Reported Meds & Active Scripts Active Lortab (Hydrocodone-Acetaminophen) 5-325 Mg Tab 1 Tab PO Q6H PRN Peridex Liq (Chlorhexidine Gluconate (Mouth) Liq) 0.12% Soln 15 Ml SWISH-SPIT BID 14 Days Penicillin V Potassium 500 Mg Tab 500 Mg PO Q6H 10 Days Ativan (Lorazepam) 1 Mg Tab 1 Mg PO Q8H PRN Zofran (Ondansetron HCl) 4 Mg Tab 4 Mg PO Q8HR PRN [place] (Hydrocodone-Acetaminophen) 5-325 mg Tab 1 Tab PO Q6H PRN Amoxicillin 500 Mg Cap 500 Mg PO Q6HR Doxycycline Hyclate 100 Mg Cap 100 Mg PO BID Zofran Odt (Ondansetron Odt) 4 Mg Tab 4 Mg SL Q6HR PRN Augmentin (Amoxicillin-Clavulanate) 875-125 Mg Tab 1 Tab PO BID Sertraline (Sertraline HCl) 50 Mg Tab 50 Mg PO DAILY Review of Systems Except as stated in HPI: all other systems reviewed are Neg Physical Exam Narrative GENERAL: Well-nourished, well-developed email patient, ambulatory and in no acute distress SKIN: Focused skin assessment warm/dry. HEAD: Normocephalic. Atraumatic. No erythema or edema EYES: No scleral icterus. No injection or drainage. ENT: Mucosa pink and moist. No erythema or exudates. No uvular edema. No uvular , palatal, or tonsillar deviation. Airway patent. Nasal turbinates appear normal without nasal blood, purulent drainage or septal hematoma. DENTAL: No loose teeth. Generalized poor dentition. The right mandibular second molar is decayed down to the gingiva and there is a large cavity in the right mandibular third molar. There is associated gingival erythema and edema with no appreciable abscess. Submental spaces soft. No malocclusion. NECK: Supple, trachea midline. No JVD or lymphadenopathy. CARDIOVASCULAR: Regular rate and rhythm without murmurs, gallops, or rubs. RESPIRATORY: Breath sounds equal bilaterally. No accessory muscle use. Data Data Last Documented VS Vital Signs Date Time Temp Pulse Resp B/P (MAP) Pulse Ox O2 Delivery O2 Flow Rate FiO2 11/22/16 20:45 11/22/16 20:08 98.9 98 16 100 Room Air MDM Medical Decision Making Medical Screen Exam Complete: Yes Emergency Medical Condition: Yes Medical Record Reviewed: Yes Differential Diagnosis Dental caries versus dental abscess versus gingivitis versus pulpitis versus periodontal disease Narrative Course 31 year-old female presents to emergency department for evaluation of dental pain. Patient does have significantly decayed mandibular second and third molars with associated gingival erythema and edema. Patient will be started on oral antibiotics and provided pain control. I explained to her that this would not get better until this fixed. She verbalizes understanding. She agrees to return immediately with any acute worsening symptoms. Diagnosis Primary Impression: Pain, dental Additional Impressions: Gingivitis Dental caries into pulp Referrals: Dentist Primary Care Physician Patient Instructions: Dental Caries (ED), General Instructions Additional Instructions: Follow up with your primary care provider It is critical that you follow up with a dentist; the only way to completely resolve the pain is to address the problem Return to ED with any acute worsening of symptoms Med/Other Pt SpecificInfo: Prescription(s) given Scripts Hydrocodone-Acetaminophen (Lortab) 5-325 Mg Tab 1 TAB PO Q6H Y for PAIN, #6 TAB 0 Refills Prov: Lara Helm 11/22/16 Chlorhexidine Gluconate (Mouth) Liq (Peridex Liq) 0.12% Soln 15 ML SWISH-SPIT BID for 14 Days, #420 ML 0 Refills Prov: Lara Helm 11/22/16 Penicillin V Potassium (Penicillin V Potassium) 500 Mg Tab 500 MG PO Q6H for Infection for 10 Days, #40 TAB 0 Refills Prov: Lara Helm 11/22/16 Disposition: 01 DISCHARGE HOME Condition: Stable Lara Helm Nov 22, 2016 20:37
[2016-11-22] MEDS ORDERED: HYDR-3533 PO (20:39)
[2016-12-20] MEDS ORDERED: LORA-474 PO (11:24)
== END 2016-11-22 20:46 | disposition home or self-care (01) ==
LOC: NEPK 20:06
DX: K05.10 Chronic gingivitis, plaque induced (principal); K02.9 Dental caries, unspecified; Z72.0 Tobacco use
CPT/HCPCS: 99284

== ENCOUNTER 2017-02-11 03:24 | Emergency (ER) | payer MEDICAID ==
[~2017-02-11] VITALS: Ht 170.2 cm; Wt 60.0 kg
[~2017-02-11 03:24] MED LIST changes: -AMOX500C PO; -AUGM875T3 PO; -DOXY100C PO; +HYDR-3533 PO; +PERI0.126 SWISH-SPIT
[2017-02-11 03:25] VITALS: BP 133/62; PULSE 66; RESP 16; TEMP 97.7; O2SAT 96
[2017-02-11] MEDS ORDERED: SODIUM CHLOR 0.9% 1000 ML INJ 1,000 ML IV SCH (04:05)
--- NOTE | 2017-02-11 04:09 | PD ---
HPI Chief Complaint: Abdominal Pain Time Seen by Provider: 04:01 Travel History International Travel<30 days: No Contact w/Intl Traveler<30days: No Traveled to known affect area: No History of Present Illness HPI Patient is a 31-year-old female presents emergency Department with a two-week history of epigastric pain wrapping around both flanks. Patient states that she has an appointment with her regular physician but the pain gets more severe time to time and she decided to come in and be seen. She states that she's been having some nausea and emesis of food but no bile and no blood. She describes the pain as cramping, intermittent, location as above, radiation as above. Noted the patient is are he had a cholecystectomy, she's also had a hysterectomy after intractable uterine bleeding, she is are he had 2 children. PFSH Past Medical History Hx Anticoagulant Therapy: No Anemia: Yes Anxiety: Yes Depression: Yes Cancer: No Cardiovascular Problems: Yes (HTN) Chemotherapy: No Cerebrovascular Accident: No Diabetes: No Diminished Hearing: No Endocrine: No Fibromyalgia: Yes Gastrointestinal Disorders: Yes (IBS) GERD: Yes Genitourinary: Yes (UTERINE FIBROIDS) Headaches: Yes Hepatitis: No Hiatal Hernia: Yes Herniated Disk: Yes Hypertension: Yes Immune Disorder: No Implanted Vascular Access Dvce: No Kidney Stones: Yes Musculoskeletal: Yes (chonic back pain) Neurologic: Yes (numbness down l leg to foot) Psychiatric: Yes Reproductive: No Respiratory: No Immunizations Current: Yes Migraines: Yes Thyroid Disease: No Ulcer: Yes Tetanus Vaccination: < 5 Years Influenza Vaccination: No ?: Not Menopausal: No : 2 Para: 2 Miscarriage: 0 : 0 Ovarian Cysts: Yes (BILATERAL 5CM ) Tubal Ligation: Yes Past Surgical History Abdominal Surgery: Yes AICD: No Cholecystectomy: Yes Gynecologic Surgery: Yes (lumpectomy left breast, UTERINE ABALATION) Hysterectomy: Yes Joint Replacement: No Oral Surgery: Yes (WISDOM TEETH) Pacemaker: No Thoracic Surgery: Yes (lumpectomy on left ) Other Surgery: Yes (hemmorrhoid removal, mesh removal with repair, cyst rectal removal,) Family History Family Hypercholesterolemia: Yes Social History Alcohol Use: Yes (OCCASSIONALLY) Tobacco Use: Yes (ocassionally) Substance Use: No (PT DENIES, HX) Allergies-Medications (Allergen,Severity, Reaction): Coded Allergies: clindamycin (Unverified Allergy, Severe, Hives THROAT SWELLING, 10/16/16) coconut (Unverified Allergy, Severe, Anaphylaxis, 10/16/16) pear (Unverified Allergy, Severe, Anaphylaxis, 10/16/16) ketorolac (Unverified Allergy, Intermediate, STATES HIVES / GI SX, 10/16/16 ) gastric ulcers and abd sx with mesh repair acetaminophen (Unverified Adverse Reaction, Severe, irritability, 10/16/16) dextromethorphan (Unverified Adverse Reaction, Severe, irritability, ) doxylamine (Unverified Adverse Reaction, Severe, irritability, 10/16/16) sulfamethoxazole (Unverified Adverse Reaction, Severe, throat swelling, ) trimethoprim (Unverified Adverse Reaction, Severe, throat swelling, ) cephalexin (Unverified Adverse Reaction, Intermediate, hives, 10/16/16) ciprofloxacin (Unverified Adverse Reaction, Intermediate, RASH/hives, 10/16) diclofenac (Unverified Adverse Reaction, Intermediate, 10/16/16) gastric ulcers and abd sx with mesh repair etodolac (Unverified Adverse Reaction, Intermediate, 10/16/16) gastric ulcers and abd sx with mesh repair flurbiprofen (Unverified Adverse Reaction, Intermediate, 10/16/16) gastric ulcers and abd sx with mesh repair gabapentin (Unverified Adverse Reaction, Intermediate, hives, 10/16/16) ibuprofen (Unverified Adverse Reaction, Intermediate, 10/16/16) gastric ulcers and abd sx with mesh repair indomethacin (Unverified Adverse Reaction, Intermediate, 10/16/16) gastric ulcers and abd sx with mesh repair ketoprofen (Unverified Adverse Reaction, Intermediate, 10/16/16) gastric ulcers and abd sx with mesh repair meloxicam (Unverified Adverse Reaction, Intermediate, irritability/hives, 10/16/16) naproxen (Unverified Adverse Reaction, Intermediate, 10/16/16) gastric ulcers and abd sx with mesh repair oxaprozin (Unverified Adverse Reaction, Intermediate, 10/16/16) gastric ulcers and abd sx with mesh repair pseudoephedrine (Unverified Adverse Reaction, Intermediate, ITCHING/ RESTLESSNESS, 10/16/16) tramadol (Unverified Adverse Reaction, Intermediate, hives, 10/16/16) Reported Meds & Prescriptions Reported Meds & Active Scripts Active Zofran Odt (Ondansetron Odt) 4 Mg Tab 4 Mg SL Q6HR PRN Ativan (Lorazepam) 1 Mg Tab 1 Mg PO Q8H PRN Lortab (Hydrocodone-Acetaminophen) 5-325 Mg Tab 1 Tab PO Q6H PRN Peridex Liq (Chlorhexidine Gluconate (Mouth) Liq) 0.12% Soln 15 Ml SWISH-SPIT BID 14 Days Zofran (Ondansetron HCl) 4 Mg Tab 4 Mg PO Q8HR PRN [place] (Hydrocodone-Acetaminophen) 5-325 mg Tab 1 Tab PO Q6H PRN Sertraline (Sertraline HCl) 50 Mg Tab 50 Mg PO DAILY Review of Systems Except as stated in HPI: all other systems reviewed are Neg Physical Exam Narrative GENERAL: Well-developed well-nourished no obvious distress SKIN: Focused skin assessment warm/dry. HEAD: Atraumatic. Normocephalic. EYES: Pupils equal and round. No scleral icterus. No injection or drainage. ENT: No nasal bleeding or discharge. Mucous membranes pink and moist. NECK: Trachea midline. No JVD. CARDIOVASCULAR: Regular rate and rhythm. No murmur appreciated. RESPIRATORY: No accessory muscle use. Clear to auscultation. Breath sounds equal bilaterally. GASTROINTESTINAL: Abdomen soft, non-tender, nondistended. Hepatic and splenic margins not palpable. No rebound no percussive tenderness, [place] sign negative , obturator sign negative, so sign negative, no voluntary or involuntary guarding. MUSCULOSKELETAL: No obvious deformities. No clubbing. No cyanosis. No edema. NEUROLOGICAL: Awake and alert. No obvious cranial nerve deficits. Motor grossly within normal limits. Normal speech. PSYCHIATRIC: Appropriate mood and affect; insight and judgment normal. Data Data Last Documented VS Vital Signs Date Time Temp Pulse Resp B/P (MAP) Pulse Ox O2 Delivery O2 Flow Rate FiO2 02/11/17 05:41 02/11/17 04:37 98 Room Air 02/11/17 03:25 97.7 66 16 Orders Orders Urinalysis - C+S If Indicated (02/11/17 03:51) Complete Blood Count With Diff (02/11/17 04:05) Comprehensive Metabolic Panel (02/11/17 04:05) Lipase (02/11/17 04:05) Iv Access Insert/Monitor (02/11/17 04:05) Ecg Monitoring (02/11/17 04:05) Oximetry (02/11/17 04:05) Sodium Chlor 0.9% 1000 Ml Inj (Ns 1000 M (02/11/17 04:05) Sodium Chloride 0.9% Flush (Ns Flush) (02/11/17 04:15) Al-Mag Hy-Si 40-40-4 Mg/Ml Liq (Mag-Al P (02/11/17 04:15) Lidocaine 2% Viscous (Xylocaine 2% Visco (02/11/17 04:15) Ed Discharge Order (02/11/17 05:25) Labs Laboratory Tests Test 02/11/17 04:29 White Blood Count 4.0 TH/MM3 Red Blood Count 4.13 MIL/MM3 Hemoglobin 12.2 GM/DL Hematocrit 36.5 % Mean Corpuscular Volume 88.5 FL Mean Corpuscular Hemoglobin 29.6 PG Mean Corpuscular Hemoglobin Concent 33.4 % Red Cell Distribution Width 14.7 % Platelet Count 237 TH/MM3 Mean Platelet Volume 7.5 FL Neutrophils (%) (Auto) 35.3 % Lymphocytes (%) (Auto) 57.1 % Monocytes (%) (Auto) 6.4 % Eosinophils (%) (Auto) 0.6 % Basophils (%) (Auto) 0.6 % Neutrophils # (Auto) 1.4 TH/MM3 Lymphocytes # (Auto) 2.3 TH/MM3 Monocytes # (Auto) 0.3 TH/MM3 Eosinophils # (Auto) 0.0 TH/MM3 Basophils # (Auto) 0.0 TH/MM3 CBC Comment DIFF FINAL Differential Comment Blood Urea Nitrogen 10 MG/DL Creatinine 0.72 MG/DL Random Glucose 85 MG/DL Total Protein 6.8 GM/DL Albumin 3.7 GM/DL Calcium Level 8.5 MG/DL Alkaline Phosphatase 38 U/L Aspartate Amino Transf (AST/SGOT) 18 U/L Alanine Aminotransferase (ALT/SGPT) 22 U/L Total Bilirubin 0.2 MG/DL Sodium Level 139 MEQ/L Potassium Level 3.5 MEQ/L Chloride Level 105 MEQ/L Carbon Dioxide Level 27.7 MEQ/L Anion Gap 6 MEQ/L Estimat Glomerular Filtration Rate 116 ML/MIN Lipase 226 U/L MDM Medical Decision Making Medical Screen Exam Complete: Yes Emergency Medical Condition: Yes Differential Diagnosis Gastritis, gastroenteritis, peptic ulcer disease, chronic abdominal pain, pancreatitis seems unlikely. Narrative Course Patient roomed in the emergency department, appears well, abdomen is benign, while in the emergency department is not had any vomiting, mild nausea, she started having some non-bloody and non-melena's diarrhea in the emergency department as well. Elect lites within normal limits, CBC unremarkable. UA negative, status post hysterectomy. Signs symptoms consistent with gastritis versus gastroenteritis, discussed with her symptomatic management follow-up with her primary care physician and return to ED criteria. Diagnosis Primary Impression: Nausea & vomiting Qualified Codes: R11.2 - Nausea with vomiting, unspecified Additional Impression: Epigastric abdominal pain Patient Instructions: Gastroenteritis (DC), General Instructions Med/Other Pt SpecificInfo: Prescription(s) given Scripts Ondansetron Odt (Zofran Odt) 4 Mg Tab 4 MG SL Q6HR Y for Nausea/Vomiting, #20 TAB 0 Refills Prov: Mao Newman MD 02/11/17 Disposition: 01 DISCHARGE HOME Condition: Stable Mao Newman MD Feb 11, 2017 04:09
[2017-02-11] MEDS ORDERED: LIDOCAINE VISCOUS 2% SOLN 15 ML UDC PO ONE (04:15)
[2017-02-11] MEDS ORDERED: SODIUM CHLORIDE 0.9% FLUSH 10 ML FLUSH IV FLUSH PRN (04:15)
[2017-02-11] MEDS ORDERED: ALUMINUM/MAGNESIUM/SIMETH 30 ML CUP PO ONE (04:15)
[2017-02-11 04:37] VITALS: O2SAT 98
[2017-02-11 04:46] LABS: AUTOMATED NEUTROPHIL # 1.4 TH/MM3 (1.8-7.7); BASOPHIL % 0.6 % (0.0-2.0); EOSINOPHIL % 0.6 % (0.0-4.0); HEMATOCRIT 36.5 % (35.0-46.0); HEMO FLAGS DIFF FINAL; LYMPH % 57.1 % (9.0-44.0); LYMPHOCYTE # 2.3 TH/MM3 (1.0-4.8); MEAN CELL VOLUME 88.5 FL (80.0-100.0); MEAN CORPUSCULAR HEMOGLOBIN 29.6 PG (27.0-34.0); MEAN CORPUSCULAR HGB CONC 33.4 % (32.0-36.0); MONO % 6.4 % (0.0-8.0); NEUT % 35.3 % (16.0-70.0); PLATELET COUNT 237 TH/MM3 (150-450); RED BLOOD COUNT 4.13 MIL/MM3 (4.00-5.30); RED CELL DISTRIBUTION WIDTH 14.7 % (11.6-17.2)
[2017-02-11 05:04] LABS: ALT (GPT) 22 U/L (10-53)
[2017-02-11] MEDS ORDERED: ZOFR4TAB3 SL (05:06)
[2017-02-11 05:07] LABS: ALKALINE PHOSPHATASE 38 U/L (45-117); TOTAL BILIRUBIN ADULT 0.2 MG/DL (0.2-1.0)
[2017-02-11 05:09] LABS: ANION GAP 6 MEQ/L (5-15); AST (GOT) 18 U/L (15-37); BICARBONATE 27.7 MEQ/L (21.0-32.0); BLOOD UREA NITROGEN 10 MG/DL (7-18); CHLORIDE 105 MEQ/L (98-107); GLOMERULAR FILTRATION RATE 116 ML/MIN (>89); POTASSIUM 3.5 MEQ/L (3.5-5.1); SODIUM (NA) 139 MEQ/L (136-145)
[2017-02-12] MEDS ORDERED: PANT40TA3 PO (11:29)
[2017-02-12] MEDS ORDERED: LORA-474 PO (11:30)
[2017-02-12] MEDS ORDERED: FLU60SYR19 IM (11:35)
== END 2017-02-11 05:47 | disposition home or self-care (01) ==
LOC: NEPC 03:24
DX: R11.2 Nausea with vomiting, unspecified (principal); R10.13 Epigastric pain; D64.9 Anemia, unspecified; F41.9 Anxiety disorder, unspecified; F32.9 Major depressive disorder, single episode, unspecified; I10 Essential (primary) hypertension; K21.9 Gastro-esophageal reflux disease without esophagitis; M79.7 Fibromyalgia; Z87.19 Personal history of other diseases of the digestive system
CPT/HCPCS: 80053; 83690; 85025; 99285; J7030

== ENCOUNTER 2017-03-07 11:46 | Emergency (ER) | payer MEDICAID ==
[~2017-03-07] VITALS: Ht 170.2 cm; Wt 63.5 kg
[2017-03-07 11:46] VITALS: BP 136/81; PULSE 96; RESP 18; TEMP 99.2; O2SAT 98
[~2017-03-07 11:46] MED LIST changes: -HYDR-3533 PO; +PANT40TA3 PO; -PERI0.126 SWISH-SPIT; -ZOFR4TAB PO
[2017-03-07] MEDS ORDERED: SODIUM CHLOR 0.9% 1000 ML INJ 1,000 ML IV SCH (12:01)
[2017-03-07 12:04] VITALS: BP 130/81; PULSE 82; RESP 18; O2SAT 98
[2017-03-07] MEDS ORDERED: LIDOCAINE VISCOUS 2% SOLN 15 ML UDC PO ONE (12:15)
[2017-03-07] MEDS ORDERED: FAMOTIDINE 20 MG/2 ML VIAL IV PUSH ONE (12:15)
[2017-03-07] MEDS ORDERED: ALUMINUM/MAGNESIUM/SIMETH 30 ML CUP PO ONE (12:15)
[2017-03-07] MEDS ORDERED: MORPHINE SULFATE 4 MG/ML INJ IV PUSH ONE (12:15)
[2017-03-07] MEDS ORDERED: ONDANSETRON HCL 4 MG/2 ML VIAL IVP ONE (12:15)
[2017-03-07] MEDS ORDERED: MORPHINE SULFATE 2 MG/ML INJ IV PUSH ONE (12:30)
[2017-03-07 12:39] LABS: BILIRUBIN, URINE NEG (NEG); BLOOD, URINE NEG (NEG); GLUCOSE,URINE NEG (NEG); KETONE, URINE NEG (NEG); NITRITE,URINE NEG (NEG); SQUAMOUS EPITHELIAL CELL URINE <1 /hpf (0-5); URINE COLOR LIGHT-YELLOW (YELLW/STRAW); URINE LEUKOCYTE ESTERASE NEG (NEG)
[2017-03-07 12:43] LABS: AUTOMATED NEUTROPHIL # 6.4 TH/MM3 (1.8-7.7); BASOPHIL % 0.3 % (0.0-2.0); EOSINOPHIL % 0.1 % (0.0-4.0); HEMOGLOBIN 12.3 GM/DL (11.6-15.3); LYMPH % 17.7 % (9.0-44.0); LYMPHOCYTE # 1.4 TH/MM3 (1.0-4.8); MEAN CELL VOLUME 89.8 FL (80.0-100.0); MEAN CORPUSCULAR HEMOGLOBIN 29.8 PG (27.0-34.0); MEAN CORPUSCULAR HGB CONC 33.2 % (32.0-36.0); MEAN PLATELET VOLUME 8.2 FL (7.0-11.0); MONO % 2.8 % (0.0-8.0); MONOCYTE # 0.2 TH/MM3 (0-0.9); NEUT % 79.1 % (16.0-70.0); PLATELET COUNT 238 TH/MM3 (150-450); RED BLOOD COUNT 4.12 MIL/MM3 (4.00-5.30); RED CELL DISTRIBUTION WIDTH 13.7 % (11.6-17.2); WHITE BLOOD COUNT 8.1 TH/MM3 (4.0-11.0)
[2017-03-07 13:05] LABS: ALBUMIN 4.5 GM/DL (3.4-5.0); ALT (GPT) 11 U/L (10-53); AST (GOT) 14 U/L (15-37); BICARBONATE 27.8 MEQ/L (21.0-32.0); BLOOD UREA NITROGEN 8 MG/DL (7-18); CALCIUM 9.2 MG/DL (8.5-10.1); CHLORIDE 104 MEQ/L (98-107); CREATININE 0.78 MG/DL (0.50-1.00); GLOMERULAR FILTRATION RATE 106 ML/MIN (>89); GLUCOSE,RANDOM 98 MG/DL (74-106); LIPASE 128 U/L (73-393); SODIUM (NA) 138 MEQ/L (136-145)
[2017-03-07 13:06] LABS: ALKALINE PHOSPHATASE 39 U/L (45-117); TOTAL BILIRUBIN ADULT 0.1 MG/DL (0.2-1.0); TOTAL PROTEIN 7.9 GM/DL (6.4-8.2)
[2017-03-07] MEDS ORDERED: IOHEXOL 350 MG/ML 10 ML VIAL (for RAD DIAG) IVCONTRAST ONE (13:52)
--- NOTE | 2017-03-07 14:13 | RADRPT ---
EXAM DATE/TIME: 03/07/2017 13:52 [facility] COMPARISON: CT ABDOMEN & PELVIS W CONTRAST, August 21, 2016, 2:39. INDICATIONS : Abdominal pain with vomiting and diarrhea for 1 month. IV CONTRAST: 87 cc Omnipaque 350 (iohexol) IV ORAL CONTRAST: No oral contrast ingested. RADIATION DOSE: 4.51 CTDIvol (mGy) MEDICAL HISTORY : Hypertension. Hernia, hiatal. SURGICAL HISTORY : Cholecystectomy. Hysterectomy.Tubal ligation. ENCOUNTER: Initial ACUITY: 1 month PAIN SCALE: 5/10 LOCATION: Bilateral abdomen TECHNIQUE: Volumetric scanning of the abdomen and pelvis was performed. Using automated exposure control and ad justment of the mA and/or kV according to patient size, radiation dose was kept as low as reasonably achievable to obtain optimal diagnostic quality images. DICOM format image data is available electro nically for review and comparison. FINDINGS: LOWER LUNGS: The visualized lower lungs are clear. LIVER: Homogeneous density without lesion. There is no dilation of the biliary tree. No calcified gallston es. SPLEEN: Normal size without lesion. PANCREAS: Within normal limits. KIDNEYS: Normal in size and shape. There is no mass, stone or hydronephrosis. ADRENAL GLANDS: Within normal limits. VASCULAR: There is no aortic aneurysm. BOWEL/MESENTERY: The stomach, small bowel, and colon demonstrate no acute abnormality. There is no free intraperitone al air or fluid. ABDOMINAL WALL: Within normal limits. RETROPERITONEUM: There is no lymphadenopathy. BLADDER: No wall thickening or mass. REPRODUCTIVE: There is a 4 cm cystic mass in the right adnexa region. Small cystic structures are seen in the left adnexa region. Tubo-ovarian process is suspected. Correlation suggested. No free fluid. INGUINAL: There is no lymphadenopathy or hernia. MUSCULOSKELETAL: Within normal limits for patient age. CONCLUSION: Cystic areas both adnexal regions. No free fluid Tubo-ovarian process is suspected. Correlation suggested. Wes Bustos MD FACR on March 07, 2017 at 14:09 Board Certified Radiologist. This report was verified electronically.
[2017-03-07] MEDS ORDERED: POTASSIUM CHLORIDE 20 MEQ CONTROLLED RELEASE TAB PO ONE (14:30)
--- NOTE | 2017-03-07 14:33 | PD ---
HPI Chief Complaint: GI Complaint Time Seen by Provider: 11:55 Travel History International Travel<30 days: No Contact w/Intl Traveler<30days: No Traveled to known affect area: No History of Present Illness HPI 31-year-old female that presents to the ED for evaluation of upper abdominal pain. Per patient she's had this for almost a month now. She was seen here in early January and was diagnosed with gastritis and told to take antiacids and follow with PCP. Patient follow with PCP who started her on pantoprazole 40 mg daily and states that the pain has not improved completely. Patient still has pain that flares. Per patient feels like a pulling sensation. She states that she had her gallbladder removed years ago. She states that she had a hysterectomy. She states that she's been having loss of appetite. Patient states the pain is 7 out of 10. Comes and goes. Like a spasm. She had a GI doctor but the GI doctor recently moved. She does lumbar has one. She doesn't multiple and his medications. Pain stays mainly on the upper abdomen but does radiate to the chest and feels like a burning sensation. She denies any history of heart disease. No fevers chills or sweats. No other medical issues at this time. PFSH Past Medical History Hx Anticoagulant Therapy: No Anemia: Yes Anxiety: Yes Depression: Yes Cancer: No Cardiovascular Problems: Yes (HTN) Chemotherapy: No Cerebrovascular Accident: No Diabetes: No Diminished Hearing: No Endocrine: No Fibromyalgia: Yes Gastrointestinal Disorders: Yes (IBS) GERD: Yes Genitourinary: Yes (UTERINE FIBROIDS) Headaches: Yes Hepatitis: No Hiatal Hernia: Yes Herniated Disk: Yes Hypertension: Yes Immune Disorder: No Implanted Vascular Access Dvce: No Kidney Stones: Yes Musculoskeletal: Yes (chonic back pain) Neurologic: Yes (numbness down l leg to foot) Psychiatric: Yes Reproductive: No Respiratory: No Immunizations Current: Yes Migraines: Yes Thyroid Disease: No Ulcer: Yes Tetanus Vaccination: < 5 Years ?: Not Menopausal: No : 2 Para: 2 Miscarriage: 0 : 0 Ovarian Cysts: Yes (BILATERAL 5CM ) Tubal Ligation: Yes Past Surgical History Abdominal Surgery: Yes AICD: No Cholecystectomy: Yes Gynecologic Surgery: Yes (lumpectomy left breast, UTERINE ABALATION) Hysterectomy: Yes (partial hysterectomy 2013) Joint Replacement: No Oral Surgery: Yes (WISDOM TEETH) Pacemaker: No Thoracic Surgery: Yes (lumpectomy on left ) Other Surgery: Yes (hemmorrhoid removal, mesh removal with repair, cyst rectal removal,) Family History Family Hypercholesterolemia: Yes Social History Alcohol Use: Yes (OCCASSIONALLY) Tobacco Use: Yes (ocassionally) Substance Use: No (PT DENIES, HX) Allergies-Medications (Allergen,Severity, Reaction): Coded Allergies: clindamycin (Unverified Allergy, Severe, Hives THROAT SWELLING, 03/07/17) coconut (Unverified Allergy, Severe, Anaphylaxis, 03/07/17) pear (Unverified Allergy, Severe, Anaphylaxis, 03/07/17) ketorolac (Unverified Allergy, Intermediate, STATES HIVES / GI SX, 03/07/17) gastric ulcers and abd sx with mesh repair acetaminophen (Unverified Adverse Reaction, Severe, irritability, 03/07/17) dextromethorphan (Unverified Adverse Reaction, Severe, irritability, ) doxylamine (Unverified Adverse Reaction, Severe, irritability, 03/07/17) sulfamethoxazole (Unverified Adverse Reaction, Severe, throat swelling, ) trimethoprim (Unverified Adverse Reaction, Severe, throat swelling, ) cephalexin (Unverified Adverse Reaction, Intermediate, hives, 03/07/17) ciprofloxacin (Unverified Adverse Reaction, Intermediate, RASH/hives, ) diclofenac (Unverified Adverse Reaction, Intermediate, 03/07/17) gastric ulcers and abd sx with mesh repair etodolac (Unverified Adverse Reaction, Intermediate, 03/07/17) gastric ulcers and abd sx with mesh repair flurbiprofen (Unverified Adverse Reaction, Intermediate, 03/07/17) gastric ulcers and abd sx with mesh repair gabapentin (Unverified Adverse Reaction, Intermediate, hives, 03/07/17) ibuprofen (Unverified Adverse Reaction, Intermediate, 03/07/17) gastric ulcers and abd sx with mesh repair indomethacin (Unverified Adverse Reaction, Intermediate, 03/07/17) gastric ulcers and abd sx with mesh repair ketoprofen (Unverified Adverse Reaction, Intermediate, 03/07/17) gastric ulcers and abd sx with mesh repair meloxicam (Unverified Adverse Reaction, Intermediate, irritability/hives, 03/07/17) naproxen (Unverified Adverse Reaction, Intermediate, 03/07/17) gastric ulcers and abd sx with mesh repair oxaprozin (Unverified Adverse Reaction, Intermediate, 03/07/17) gastric ulcers and abd sx with mesh repair pseudoephedrine (Unverified Adverse Reaction, Intermediate, ITCHING/ RESTLESSNESS, 03/07/17) tramadol (Unverified Adverse Reaction, Intermediate, hives, 03/07/17) Reported Meds & Prescriptions Reported Meds & Active Scripts Active Ranitidine (Ranitidine HCl) 150 Mg Tab 150 Mg PO BID Hydrocodone-Acetaminophen 5-325 mg Tab 1 Tab PO Q6H PRN Ativan (Lorazepam) 1 Mg Tab 1 Mg PO Q8H PRN Review of Systems Except as stated in HPI: all other systems reviewed are Neg Physical Exam Narrative GENERAL: SKIN: Warm and dry. HEAD: Atraumatic. Normocephalic. EYES: Pupils equal and round. No scleral icterus. No injection or drainage. ENT: No nasal bleeding or discharge. Mucous membranes pink and moist. Tongue is midline. No uvula deviation. NECK: Trachea midline. No JVD. CARDIOVASCULAR: Regular rate and rhythm. No murmurs, S3, S4. RESPIRATORY: No accessory muscle use. Clear to auscultation. Breath sounds equal bilaterally. GASTROINTESTINAL: Abdomen soft, tender to palpation in the epigastric area., nondistended. Hepatic and splenic margins not palpable. MUSCULOSKELETAL: Extremities without clubbing, cyanosis, or edema. No obvious deformities. Full range of motion of the upper and lower extremities bilaterally. 2+ pulses bilaterally. NEUROLOGICAL: Awake and alert. No obvious cranial nerve deficits. Motor grossly within normal limits. Five out of 5 muscle strength in the arms and legs. Normal speech. PSYCHIATRIC: Appropriate mood and affect; insight and judgment normal. Data Data Last Documented VS Vital Signs Date Time Temp Pulse Resp B/P (MAP) Pulse Ox O2 Delivery O2 Flow Rate FiO2 03/07/17 15:09 68 18 123/59 (80) 98 Room Air 03/07/17 11:46 99.2 Orders Orders Complete Blood Count With Diff (03/07/17 12:01) Comprehensive Metabolic Panel (03/07/17 12:01) Lipase (03/07/17 12:01) Urinalysis - C+S If Indicated (03/07/17 12:01) Ct Abd/Pel W Iv Contrast(Rout) (03/07/17 12:01) Iv Access Insert/Monitor (03/07/17 12:01) Morphine Inj (Morphine Inj) (03/07/17 12:15) Ondansetron Inj (Zofran Inj) (03/07/17 12:15) Sodium Chlor 0.9% 1000 Ml Inj (Ns 1000 M (03/07/17 12:01) Famotidine Inj (Pepcid Inj) (03/07/17 12:15) Al-Mag Hy-Si 40-40-4 Mg/Ml Liq (Mag-Al P (03/07/17 12:15) Lidocaine 2% Viscous (Xylocaine 2% Visco (03/07/17 12:15) Morphine Inj (Morphine Inj) (03/07/17 12:30) Potassium Chloride (Kcl) (03/07/17 14:30) Ed Discharge Order (03/07/17 15:31) Labs Laboratory Tests Test 03/07/17 12:15 White Blood Count 8.1 TH/MM3 Red Blood Count 4.12 MIL/MM3 Hemoglobin 12.3 GM/DL Hematocrit 37.0 % Mean Corpuscular Volume 89.8 FL Mean Corpuscular Hemoglobin 29.8 PG Mean Corpuscular Hemoglobin Concent 33.2 % Red Cell Distribution Width 13.7 % Platelet Count 238 TH/MM3 Mean Platelet Volume 8.2 FL Neutrophils (%) (Auto) 79.1 % Lymphocytes (%) (Auto) 17.7 % Monocytes (%) (Auto) 2.8 % Eosinophils (%) (Auto) 0.1 % Basophils (%) (Auto) 0.3 % Neutrophils # (Auto) 6.4 TH/MM3 Lymphocytes # (Auto) 1.4 TH/MM3 Monocytes # (Auto) 0.2 TH/MM3 Eosinophils # (Auto) 0.0 TH/MM3 Basophils # (Auto) 0.0 TH/MM3 CBC Comment DIFF FINAL Differential Comment Urine Color LIGHT-YELLOW Urine Turbidity CLEAR Urine pH 6.0 Urine Specific [place] 1.004 Urine Protein NEG mg/dL Urine Glucose (UA) NEG mg/dL Urine Ketones NEG mg/dL Urine Occult Blood NEG Urine Nitrite NEG Urine Bilirubin NEG Urine Urobilinogen LESS THAN 2.0 MG/DL Urine Leukocyte Esterase NEG Urine WBC LESS THAN 1 /hpf Urine Squamous Epithelial Cells <1 /hpf Microscopic Urinalysis Comment CULT NOT INDICATED Blood Urea Nitrogen 8 MG/DL Creatinine 0.78 MG/DL Random Glucose 98 MG/DL Total Protein 7.9 GM/DL Albumin 4.5 GM/DL Calcium Level 9.2 MG/DL Alkaline Phosphatase 39 U/L Aspartate Amino Transf (AST/SGOT) 14 U/L Alanine Aminotransferase (ALT/SGPT) 11 U/L Total Bilirubin 0.1 MG/DL Sodium Level 138 MEQ/L Potassium Level 3.0 MEQ/L Chloride Level 104 MEQ/L Carbon Dioxide Level 27.8 MEQ/L Anion Gap 6 MEQ/L Estimat Glomerular Filtration Rate 106 ML/MIN Lipase 128 U/L MDM Medical Decision Making Medical Screen Exam Complete: Yes Emergency Medical Condition: Yes Medical Record Reviewed: Yes Interpretation(s) CBC & BMP Diagram 03/07/17 12:15 Total Protein 7.9, Albumin 4.5, Calcium Level 9.2, Alkaline Phosphatase 39 L, Aspartate Amino Transf (AST/SGOT) 14 L, Alanine Aminotransferase (ALT/SGPT) 11, Total Bilirubin 0.1 L Lipase within normal limits. Last Impressions Abdomen/Pelvis CT 03/07/17 1201 Signed Impressions: Service Date/Time: Tuesday, March 07, 2017 13:52 - CONCLUSION: Cystic areas both adnexal regions. No free fluid Tubo-ovarian process is suspected. Correlation suggested. Wes Bustos MD FACR Differential Diagnosis Acute abdomen versus peptic ulcer disease versus epigastric pain versus normal exam Narrative Course 31-year-old female that presents to the ED for evaluation of abdominal pain. Patient was properly examined and was found to have signs and symptoms of radiology will likely secondary to gastritis. Patient has been seen here before for same. Patient was given medications here with some relief. Imaging and labs were done patient had significant discomfort my examination. Labs and imaging were essentially unremarkable for acute surgical disease. Patient was reassured. I do recommend close follow-up with GI doctor. She was given information for GI specialist. Patient will be given a prescription for lortab and zantac to out of her medications already prescribed to her by her PCP. Told to follow with PCP. See ED worsening symptoms. Patient agrees with plan. Patient requested a note for work for the next 2 days. Diagnosis Primary Impression: Gastritis Qualified Codes: K29.00 - Acute gastritis without bleeding Referrals: Jr Stevens MD Patient Instructions: General Instructions, Narcotic given in the ED Additional Instructions: Take medication as prescribed. Follow with PCP or GI specialist. See ED worsening symptoms. Med/Other Pt SpecificInfo: Prescription(s) given Scripts Ranitidine (Ranitidine) 150 Mg Tab 150 MG PO BID for Heartburn Management, #60 TAB 0 Refills Prov: Astrid Campuzano DO 03/07/17 Hydrocodone-Acetaminophen (Hydrocodone-Acetaminophen) 5-325 mg Tab 1 TAB PO Q6H Y for PAIN, #12 TAB 0 Refills Prov: Astrid Campuzano DO 03/07/17 Disposition: 01 DISCHARGE HOME Condition: Stable Sami Esposito Mar 07, 2017 14:33
[2017-03-07 15:09] VITALS: BP 123/59; PULSE 68; RESP 18; O2SAT 98
[2017-03-07] MEDS ORDERED: RANI150T PO (15:12)
[2017-03-07] MEDS ORDERED: HYDR-3516 PO (15:12)
[2017-03-07] MEDS ORDERED: PROMETHAZINE INJ 25 MG/ML VIAL IM ONE (16:00)
== END 2017-03-07 15:51 | disposition home or self-care (01) ==
LOC: NEPC 11:46
DX: K29.00 Acute gastritis without bleeding (principal); R10.10 Upper abdominal pain, unspecified; I10 Essential (primary) hypertension; Z72.0 Tobacco use
CPT/HCPCS: 74177; 80053; 81001; 83690; 85025; 96361; 96374; 96375; 99285; J2270; J2405; J2550; J7030; Q9967

== ENCOUNTER 2017-04-07 05:24 | Emergency (ER) | payer MEDICAID ==
[~2017-04-07] VITALS: Ht 167.6 cm; Wt 60.0 kg
[~2017-04-07 05:24] MED LIST changes: +HYDR-3516 PO; -NORC5TAB PO; -PANT40TA3 PO; +RANI150T PO; -SERT-132 PO; -ZOFR4TAB3 SL
[2017-04-07 05:25] VITALS: BP 135/91; PULSE 84; RESP 18; TEMP 97.6; O2SAT 97
[2017-04-07] MEDS ORDERED: AMOX875T PO (05:42)
[2017-04-07] MEDS ORDERED: CHLO.12%30 SWISH-SPIT (05:42)
--- NOTE | 2017-04-07 05:42 | PD ---
HPI Chief Complaint: Oral / Dental Pain or Problem Time Seen by Provider: 05:35 Travel History International Travel<30 days: No Contact w/Intl Traveler<30days: No Traveled to known affect area: No History of Present Illness HPI Patient is a 31-year-old female presenting to the emergency department for evaluation of left upper dental pain. Patient states it started getting worse 2 days ago however she's had broken teeth for quite some time. Exacerbating symptoms are chewing and biting. Symptom onset was gradual. There are no alleviating factors. Patient states the pain got worse in the middle the night tonight which prompted her visit to the emergency department. Patient has not been seen or evaluated by a dentist. She denies any fever or chills, dysphagia. PFSH Past Medical History Hx Anticoagulant Therapy: No Anemia: Yes Anxiety: Yes Depression: Yes Cardiovascular Problems: Yes (HTN) Fibromyalgia: Yes Gastrointestinal Disorders: Yes (IBS) GERD: Yes Genitourinary: Yes (UTERINE FIBROIDS) Headaches: Yes Hepatitis: No Hiatal Hernia: Yes Herniated Disk: Yes Hypertension: Yes Immune Disorder: No Implanted Vascular Access Dvce: No Kidney Stones: Yes Musculoskeletal: Yes (chonic back pain) Neurologic: Yes (numbness down l leg to foot) Psychiatric: Yes Reproductive: No Respiratory: No Immunizations Current: Yes Migraines: Yes Thyroid Disease: No Ulcer: Yes Tetanus Vaccination: < 5 Years Influenza Vaccination: Yes ?: Not Menopausal: No : 2 Para: 2 Miscarriage: 0 : 0 Ovarian Cysts: Yes (BILATERAL 5CM ) Tubal Ligation: Yes Past Surgical History Abdominal Surgery: Yes AICD: No Cholecystectomy: Yes Gynecologic Surgery: Yes (lumpectomy left breast, UTERINE ABALATION) Hysterectomy: Yes Joint Replacement: No Oral Surgery: Yes (WISDOM TEETH) Pacemaker: No Thoracic Surgery: Yes (lumpectomy on left ) Other Surgery: Yes (hemmorrhoid removal, mesh removal with repair, cyst rectal removal,) Family History Family Hypercholesterolemia: Yes Social History Alcohol Use: Yes (rarly) Tobacco Use: Yes (ocassionally) Substance Use: No Allergies-Medications (Allergen,Severity, Reaction): Coded Allergies: clindamycin (Unverified Allergy, Severe, Hives THROAT SWELLING, 04/07/17) coconut (Unverified Allergy, Severe, Anaphylaxis, 04/07/17) pear (Unverified Allergy, Severe, Anaphylaxis, 04/07/17) ketorolac (Unverified Allergy, Intermediate, STATES HIVES / GI SX, 04/07/17) gastric ulcers and abd sx with mesh repair acetaminophen (Unverified Adverse Reaction, Severe, irritability, 04/07/17) dextromethorphan (Unverified Adverse Reaction, Severe, irritability, ) doxylamine (Unverified Adverse Reaction, Severe, irritability, 04/07/17) sulfamethoxazole (Unverified Adverse Reaction, Severe, throat swelling, ) trimethoprim (Unverified Adverse Reaction, Severe, throat swelling, ) cephalexin (Unverified Adverse Reaction, Intermediate, hives, 04/07/17) ciprofloxacin (Unverified Adverse Reaction, Intermediate, RASH/hives, ) diclofenac (Unverified Adverse Reaction, Intermediate, 04/07/17) gastric ulcers and abd sx with mesh repair etodolac (Unverified Adverse Reaction, Intermediate, 04/07/17) gastric ulcers and abd sx with mesh repair flurbiprofen (Unverified Adverse Reaction, Intermediate, 04/07/17) gastric ulcers and abd sx with mesh repair gabapentin (Unverified Adverse Reaction, Intermediate, hives, 04/07/17) ibuprofen (Unverified Adverse Reaction, Intermediate, 04/07/17) gastric ulcers and abd sx with mesh repair indomethacin (Unverified Adverse Reaction, Intermediate, 04/07/17) gastric ulcers and abd sx with mesh repair ketoprofen (Unverified Adverse Reaction, Intermediate, 04/07/17) gastric ulcers and abd sx with mesh repair meloxicam (Unverified Adverse Reaction, Intermediate, irritability/hives, 04/07/17) naproxen (Unverified Adverse Reaction, Intermediate, 04/07/17) gastric ulcers and abd sx with mesh repair oxaprozin (Unverified Adverse Reaction, Intermediate, 04/07/17) gastric ulcers and abd sx with mesh repair pseudoephedrine (Unverified Adverse Reaction, Intermediate, ITCHING/ RESTLESSNESS, 04/07/17) tramadol (Unverified Adverse Reaction, Intermediate, hives, 04/07/17) Reported Meds & Prescriptions Reported Meds & Active Scripts Active Chlorhexidine Gluconate (Mouth) Liq (Chlorhexidine Gluconate) 0.12% Soln 15 Ml SWISH-SPIT BID 10 Days Amoxicillin 875 Mg Tab 875 Mg PO BID Ranitidine (Ranitidine HCl) 150 Mg Tab 150 Mg PO BID Hydrocodone-Acetaminophen 5-325 mg Tab 1 Tab PO Q6H PRN Ativan (Lorazepam) 1 Mg Tab 1 Mg PO Q8H PRN Review of Systems Except as stated in HPI: all other systems reviewed are Neg HENT: Positive: Dental Difficulties Physical Exam Narrative GENERAL: Well Developed, well-nourished, alert female. Resting in no acute distress. MOUTH: Mucous membranes moist, no lesions, tongue and gums appear normal. There are 2 broken teeth in the left upper jaw line, no swelling, redness, drainage noted. SKIN: Warm and dry. HEAD: Normocephalic. EYES: No scleral icterus. No injection or drainage. NECK: Supple, trachea midline. No JVD or lymphadenopathy. CARDIOVASCULAR: Regular rate and rhythm without murmurs, gallops, or rubs. RESPIRATORY: Breath sounds equal bilaterally. No accessory muscle use. GASTROINTESTINAL: Abdomen soft, non-tender, nondistended. MUSCULOSKELETAL: No cyanosis, or edema. BACK: Nontender without obvious deformity. No CVA tenderness. Data Data Last Documented VS Vital Signs Date Time Temp Pulse Resp B/P (MAP) Pulse Ox O2 Delivery O2 Flow Rate FiO2 04/07/17 05:25 97.6 84 18 135/91 (106) 97 Orders Orders Ed Discharge Order (04/07/17 05:42) MDM Medical Decision Making Medical Screen Exam Complete: Yes Emergency Medical Condition: Yes Interpretation(s) Vital Signs Date Time Temp Pulse Resp B/P (MAP) Pulse Ox O2 Delivery O2 Flow Rate FiO2 04/07/17 05:25 97.6 84 18 135/91 (106) 97 Differential Diagnosis Dental caries versus dental abscess versus dentalgia versus other Narrative Course Patient is a well-appearing 31-year-old female presenting for evaluation of dental pain that has exacerbated over the last 2 days. Either broken at the gumline, this appears chronic in nature. Patient was advised to follow-up with a dentist. She will be given a prescription for amoxicillin and chlorhexidine mouthwash. She has multiple drug allergies. Patient has been given Augmentin in the past with no reaction. She was encouraged to return to emergency department for any new or worsening symptoms. Patient is stable for discharge. Diagnosis Primary Impression: Pain, dental Additional Impression: Dental caries Referrals: Dentist Patient Instructions: Dental Caries (ED), General Instructions Additional Instructions: Take medications as directed Follow-up with a dentist for further evaluation and treatment Return to emergency department for any new or worsening symptoms Med/Other Pt SpecificInfo: Prescription(s) given Scripts Chlorhexidine Gluconate (Mouth) Liq (Chlorhexidine Gluconate (Mouth) Liq) 0.12% Soln 15 ML SWISH-SPIT BID for 10 Days, #300 ML 0 Refills Prov: Nicky Gill 04/07/17 Amoxicillin (Amoxicillin) 875 Mg Tab 875 MG PO BID for Infection, #20 TAB 0 Refills Prov: Nicky Gill 04/07/17 Disposition: 01 DISCHARGE HOME Condition: Stable Nicky Gill Apr 07, 2017 05:42
== END 2017-04-07 05:55 | disposition home or self-care (01) ==
LOC: NEPD 05:24
DX: K08.89 Other specified disorders of teeth and supporting structures (principal); K02.9 Dental caries, unspecified; K21.9 Gastro-esophageal reflux disease without esophagitis; Z72.0 Tobacco use
CPT/HCPCS: 99283